=== PATIENT | female | born 1950 | race Caucasian/White ===

== ENCOUNTER 2017-07-20 11:10 | Inpatient (IN) | payer OTHER ==
[2017-07-20] MEDS ORDERED: SODIUM CHLORIDE 1,000 ML IV STA (11:12)
--- NOTE | 2017-07-20 11:17 | PDOC ---
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 Not eating, weak, confused , thinks her potassium may be low, no fever, doctors at [facility], no doctor here at [facility]. Patient has no complaints and can not really cooperate with exam. Hygene is meticulous. Timing/Duration: 1 week Severity: mild Modifying Factors: worse with: cold therapy, eating, immobilization, medication , movement, rest, other Associated Symptoms: denies: denies symptoms, chest pain, cough, diaphoresis, fever/chills, headaches, loss of appetite, malaise, nausea/vomiting, rash, seizure, shortness of breath, syncope, weakness, other Past History - Past Medical History Allergies/Adverse Reactions: Allergies Allergy/AdvReac Type Severity Reaction Status Date / Time No Known Allergies Allergy Verified 07/20/17 11:12 Home Medications: Ambulatory Orders Acetaminophen [Non-Aspirin Pain Relief] 650 mg PO Q6H PRN 07/20/17 Amlodipine Besylate 5 mg PO DAILY 07/20/17 Atorvastatin Ca [Lipitor] 80 mg PO DAILY 07/20/17 Levetiracetam [Keppra Oral Solution -] 500 mg PO BID 07/20/17 Potassium Chloride [Klor-Con] 10 meq PO DAILY 07/20/17 Amino Acids/Protein Hydrolys [Prosource No Carb Liquid Pkt] 30 ml PO BID@0800, 1730 #60 packet 07/24/17 Review of Systems - Review of Systems Able to Perform ROS?: Yes Is the patient limited Luxembourger proficient: No Constitutional: Yes: See HPI. No: Unintentional Wgt. Loss Respiratory: No: Symptoms reported Cardiac (ROS): No: Symptoms Reported ABD/GI: No: Symptoms Reported : No: Symptoms Reported Musculoskeletal: No: Symptoms Reported Integumentary: No: Symptoms Reported Neurological: No: Symptoms reported Psychiatric: No: Anxiety, Depression Endocrine: No: Symptoms Reported Hematologic/Lymphatic: No: Symptoms Reported All Other Systems: Reviewed and Negative (Generalized Weakness, Loss of appetite , Increased Confusion) *Physical Exam - Physical Exam Comments: 07/20/17 12:41 67yo chachectic female, breathing easily, unable to cooperate with exam or even interact. VSS/NAD, appears somewhat dry/dehydrated. General Appearance: No: Apparent Distress HEENT: positive: Normal ENT Inspection Neck: positive: Supple. negative: Tender, Lymphadenopathy (R), Lymphadenopathy (L) Respiratory/Chest: positive: Lungs Clear, Normal Breath Sounds Cardiovascular: positive: Regular Rhythm, Regular Rate Gastrointestinal/Abdominal: positive: Normal Bowel Sounds, Flat, Soft Rectal Exam: positive: deferred Lymphatic: negative: Adenopathy, Tenderness Musculoskeletal: positive: Normal Inspection Extremity: positive: Normal Capillary Refill, Normal Inspection. negative: Erythema, Inflammation Integumentary: positive: Normal Color, Dry, Warm Neurologic: positive: Responsive (to loud voice) ED Treatment Course - LABORATORY CBC & Chemistry Diagram: 07/23/17 07:28 07/23/17 07:28 *DC/Admit/Observation/Transfer Diagnosis at time of Disposition: Hypernatremia, RENATO (acute kidney injury) - Discharge Dispostion Condition at time of disposition: Improved - Prescriptions - Referrals - Patient Instructions - Post Discharge Activity
[2017-07-20 12:58] LABS: ACTIVATED PTT 24.7 SECONDS (24.0-38.9)
[2017-07-20 13:04] LABS: INR 1.17 (0.82-1.09); PROTHROMBIN TIME (PATIENT) 13.1 SEC (10.2-13.0)
--- NOTE | 2017-07-20 13:04 | PDOC ---
*Physical Exam - Vital Signs Last Vital Signs Temp Pulse Resp BP Pulse Ox 98.7 F 86 16 144/119 07/20/17 11:11 07/20/17 11:11 07/20/17 11:11 07/20/17 11:11 - Physical Exam Comments: 07/20/17 13:50 67yo female brought in by family for decreased po intake and lethargy. pt is nonverbal with early onset dementia. 07/20/17 13:54 gen: easily arousable, makes eye contact heart: +s1s2 reg lungs: cta b/l abd: soft, nt/nd +bs ext: no c/c/e ED Treatment Course - LABORATORY CBC & Chemistry Diagram: 07/20/17 12:00 07/20/17 12:00 - Medications Given in the ED: ED Medications Discontinued Medications Generic Name Dose Route Start Last Admin Trade Name Freq PRN Reason Stop Dose Admin Sodium Chloride 1,000 mls @ 1,000 mls/hr 07/20/17 11:12 07/20/17 11:30 Normal Saline - IV 07/20/17 12:11 1,000 mls/hr ASDIR STA Administration Medical Decision Making - Medical Decision Making 07/20/17 13:54 a/p: 67yo female with increased sleepiness -pt signed out from the prior attending pending labs. -pt currently receiving ivf hydraiton -vasquez in place. -will continue to monitor and reassess 07/20/17 14:27 sodium 150, BUN 30 cr 1.4 - concerning for dehydration will start 1/2 ns microblog sent to hospitalist for observation family at the bedside updated on labs. 07/20/17 15:53 case discussed with hospitalist [employer] [facility] who accepts pt under Dr. Decker *DC/Admit/Observation/Transfer Diagnosis at time of Disposition: Hypernatremia, RENATO (acute kidney injury) - Discharge Dispostion Condition at time of disposition: Fair Admit: Yes - Referrals - Patient Instructions - Post Discharge Activity
[2017-07-20 13:11] LABS: PH,URINE 5.5 (4.5-8); URINE APPEARANCE Clear; URINE BILIRUBIN 1+ (NEGATIVE); URINE GLUCOSE (UA) Negative (NEGATIVE); URINE KETONE Negative (NEGATIVE); URINE LEUK ESTERASE Negative (NEGATIVE); URINE NITRITE Negative (NEGATIVE); URINE UROBILINOGEN 0.2 (0.2-1.0)
[2017-07-20 13:26] LABS: BASOPHIL 0.4 % (0-2.0); EOSINOPHIL 0.2 % (0-4.5); MCH 27.7 pg (25.7-33.7); MCHC 32.1 g/dl (32.0-36.0); MEAN CELL VOLUME 86.5 fl (80-96); MEAN PLT VOLUME 10.6 fl (7.5-11.1); PLATELET COUNT 295 K/MM3 (134-434); WHITE BLOOD COUNT 9.1 K/mm3 (4.0-10.8)
[2017-07-20 13:34] LABS: VENOUS PH 7.37 (7.32-7.42)
[2017-07-20 13:35] LABS: VENOUS BLOOD GAS HCO3 27.9 meq/L (19-25)
[2017-07-20 13:36] LABS: URINE BLOOD Trace-intact (NEGATIVE); URINE COLOR YELLOW; URINE PROTEIN 1+ (NEGATIVE)
[2017-07-20 13:59] LABS: ALBUMIN 3.5 g/dl (3.4-5.0); ANION GAP 9 (8-16); CALCIUM 8.9 mg/dL (8.5-10.1); CO2 30 mmol/L (21-32); CREATININE 1.4 mg/dL (0.55-1.02); GLUCOSE,RANDOM 105 mg/dL (74-106); SGOT/AST 24 U/L (15-37); SGPT/ALT 20 U/L (12-78)
[2017-07-20 14:04] LABS: ALK PHOS 77 U/L (45-117); BILIRUBIN,TOTAL 0.6 mg/dL (0.2-1.0); CPK 651 IU/L (26-192); TROPONIN I < 0.02 ng/ml (0.00-0.05)
[2017-07-20] MEDS: SODIUM CHLORIDE 0.45% 1,000 ML IV SCH (14:30)
[2017-07-20] MEDS ORDERED: ACETAMINOPHEN 325 MG TABLET (FP) PO PRN (16:15)
[2017-07-20 17:18] VITALS: BMI 18.3
[2017-07-20 19:21] LABS: URINE WBC 0-3 (0-5)
[2017-07-20 19:22] LABS: URINE MUCUS 1+
[2017-07-20 21:00] LABS: ANION GAP 5 (8-16); CALCIUM 8.6 mg/dl (8.4-10.2); CO2 28 mmol/L (22-28); GLUCOSE,RANDOM 97 mg/dl (74-106)
--- NOTE | 2017-07-20 22:42 | HP ---
CHIEF COMPLAINT: not eating/drinking PCP: Lana Mcdowell HISTORY OF PRESENT ILLNESS: This is a 67 year old female with a past medical history significant for Alzheimer's dementia, early onset who presented to the ED with decreased po intake and increased confusion and weakness noted by family. Pt is nonverbal on exam. Family is not present. History is obtained from chart. ER course was notable for: (1) UA not c/w UTI (2) WBC 9.1 (3) Sodium 150, BUN 30, Cr 1.4 Recent Travel: unk PAST MEDICAL HISTORY: Alzheimer's dementia, early onset hypokalemia pt is on norvasc, presumed HTN pt is on atorvastatin, presumed HLD pt is on keppra, presumed seizure hx, ? r/t dementia PAST SURGICAL HISTORY: unknown Social History: Smoking: unk Alcohol: unk Drugs: unk Family History: unk Allergies No Known Allergies Allergy (Verified 07/20/17 11:12) HOME MEDICATIONS: 3 Medication Instructions Recorded Acetaminophen [Non-Aspirin Pain 650 mg PO Q6H PRN 07/20/17 Relief] Amlodipine Besylate 5 mg PO DAILY 07/20/17 Atorvastatin Ca [Lipitor] 80 mg PO DAILY 07/20/17 Levetiracetam [Keppra Oral 500 mg PO BID 07/20/17 Solution -] Potassium Chloride [Klor-Con] 10 meq PO DAILY 07/20/17 REVIEW OF SYSTEMS CONSTITUTIONAL: Present: generalized weakness, malaise, loss of appetite Absent: fever, chills, diaphoresis, weight change HEENT: Absent: rhinorrhea, nasal congestion, throat pain, throat swelling, difficulty swallowing, mouth swelling, ear pain, eye pain, visual changes CARDIOVASCULAR: Absent: chest pain, syncope, palpitations, irregular heart rate, lightheadedness , peripheral edema RESPIRATORY: Absent: cough, shortness of breath, dyspnea with exertion, orthopnea, wheezing, stridor, hemoptysis GASTROINTESTINAL: Absent: abdominal pain, abdominal distension, nausea, vomiting, diarrhea, constipation, melena, hematochezia GENITOURINARY: Absent: dysuria, frequency, urgency, hesitancy, hematuria, flank pain, genital pain MUSCULOSKELETAL: Absent: myalgia, arthralgia, joint swelling, back pain, neck pain SKIN: Absent: rash, itching, pallor HEMATOLOGIC/IMMUNOLOGIC: Absent: easy bleeding, easy bruising, lymphadenopathy, frequent infections ENDOCRINE: Absent: unexplained weight gain, unexplained weight loss, heat intolerance, cold intolerance NEUROLOGIC: Absent: headache, focal weakness or paresthesias, dizziness, unsteady gait, seizure, mental status changes, bladder or bowel incontinence PSYCHIATRIC: Absent: anxiety, depression, suicidal or homicidal ideation, hallucinations. PHYSICAL EXAMINATION Vital Signs - 24 hr 3 07/20/17 07/20/17 07/20/17 11:11 12:30 13:00 Temperature 98.7 F Pulse Rate 86 Pulse Rate [ 73 70 Apical] Respiratory 16 14 15 Rate Blood Pressure 144/119 Blood Pressure 102/71 100/70 [Left Arm] O2 Sat by Pulse 97 98 Oximetry (%) 3 07/20/17 07/20/17 07/20/17 07/20/17 14:15 14:46 16:51 22:41 Temperature 98.8 F 97.3 F L Pulse Rate 82 74 Pulse Rate [ 70 Apical] Respiratory 14 17 16 Rate Blood Pressure 113/53 100/60 Blood Pressure 100/79 [Left Arm] O2 Sat by Pulse 99 98 96 Oximetry (%) GENERAL: Awake, alert, and nonverbal, in no acute distress. HEAD: Normal with no signs of trauma. EYES: Pupils equal, round and reactive to light, extraocular movements intact, sclera anicteric, conjunctiva clear. No lid lag. EARS, NOSE, THROAT: Ears normal, nares patent, oropharynx clear without exudates. Moist mucous membranes. NECK: Normal range of motion, supple without lymphadenopathy, JVD, or masses. LUNGS: Breath sounds equal, clear to auscultation bilaterally. No wheezes, and no crackles. No accessory muscle use. HEART: Regular rate and rhythm, normal S1 and S2 without murmur, rub or gallop. ABDOMEN: Soft, nontender, not distended, normoactive bowel sounds, no guarding, no rebound, no masses. No hepatomegaly or splenomegaly. MUSCULOSKELETAL: Normal range of motion at all joints. No bony deformities or tenderness. No CVA tenderness. UPPER EXTREMITIES: 2+ pulses, warm, well-perfused. No cyanosis. No clubbing. No peripheral edema. LOWER EXTREMITIES: 2+ pulses, warm, well-perfused. No calf tenderness. No peripheral edema. NEUROLOGICAL: Cranial nerves II-XII intact. Normal speech. Normal gait. PSYCHIATRIC: Cooperative. Good eye contact. Appropriate mood and affect. SKIN: Warm, dry, normal turgor, no rashes noted, normal capillary refill. scab to right lower back, no s/s infection. wound to right hip, appears fresh, denuded skin, approx 3.2cm x 0.8cm. no depth. wound bed pink. surrounding skin WNL Laboratory Results - last 24 hr 3 07/20/17 07/20/17 07/20/17 12:00 12:00 12:00 WBC 9.1 RBC 4.39 Hgb 12.2 Hct 38.0 MCV 86.5 MCH 27.7 MCHC 32.1 RDW 14.0 Plt Count 295 MPV 10.6 Neutrophils % 81.0 Lymphocytes % 15.2 Monocytes % 3.2 L Eosinophils % 0.2 Basophils % 0.4 PT with INR 13.1 H INR 1.17 PTT (Actin FS) 24.7 L VBG pH 7.37 POC VBG pCO2 49.6 POC VBG pO2 25.0 L Mixed VBG HCO3 27.9 H Sodium Potassium Chloride Carbon Dioxide Anion Gap BUN Creatinine Creat Clearance w eGFR Random Glucose Lactic Acid Calcium Total Bilirubin AST ALT Alkaline Phosphatase Creatine Kinase Creatine Kinase Index CK-MB (CK-2) Troponin I Total Protein Albumin Urine Color Urine Appearance Urine pH Ur Specific [place] Urine Protein Urine Glucose (UA) Urine Ketones Urine Blood Urine Nitrite Urine Bilirubin Urine Urobilinogen Ur Leukocyte Esterase Urine RBC Urine WBC Ur Epithelial Cells Amorphous Urates Hyaline Casts Urine Mucus Blood Type Antibody Screen Spec Expiration Date 3 07/20/17 07/20/17 07/20/17 07/20/17 12:00 12:00 12:30 15:46 WBC RBC Hgb Hct MCV MCH MCHC RDW Plt Count MPV Neutrophils % Lymphocytes % Monocytes % Eosinophils % Basophils % PT with INR INR PTT (Actin FS) VBG pH POC VBG pCO2 POC VBG pO2 Mixed VBG HCO3 Sodium 150 H Potassium 3.8 Chloride 111 H Carbon Dioxide 30 Anion Gap 9 BUN 30 H Creatinine 1.4 H Creat Clearance w eGFR 37.51 Random Glucose 105 Lactic Acid 1.4 Calcium 8.9 Total Bilirubin 0.6 AST 24 ALT 20 Alkaline Phosphatase 77 Creatine Kinase 651 H Creatine Kinase Index 1.0 CK-MB (CK-2) 6.618 H Troponin I < 0.02 Total Protein 7.0 Albumin 3.5 Urine Color Yellow Urine Appearance Clear Urine pH 5.5 Ur Specific [place] 1.020 Urine Protein 1+ H Urine Glucose (UA) Negative Urine Ketones Negative Urine Blood Trace-intact H Urine Nitrite Negative Urine Bilirubin 1+ H Urine Urobilinogen 0.2 Ur Leukocyte Esterase Negative Urine RBC 3-5 Urine WBC 0-3 Ur Epithelial Cells 3-5 Amorphous Urates Few Hyaline Casts 3-5 Urine Mucus 1+ Blood Type Cancelled Antibody Screen Cancelled Spec Expiration Date Cancelled 3 07/20/17 07/20/17 07/20/17 19:00 20:00 Unknown WBC RBC Hgb Hct MCV MCH MCHC RDW Plt Count MPV Neutrophils % Lymphocytes % Monocytes % Eosinophils % Basophils % PT with INR INR PTT (Actin FS) VBG pH POC VBG pCO2 POC VBG pO2 Mixed VBG HCO3 Sodium 144 Potassium 3.5 Chloride 111 H Carbon Dioxide 28 Anion Gap 5 L BUN 30 H Creatinine 1.0 Creat Clearance w eGFR Random Glucose 97 Lactic Acid 1.7 2.5 H* Calcium 8.6 Total Bilirubin AST ALT Alkaline Phosphatase Creatine Kinase Creatine Kinase Index CK-MB (CK-2) Troponin I Total Protein Albumin Urine Color Urine Appearance Urine pH Ur Specific [place] Urine Protein Urine Glucose (UA) Urine Ketones Urine Blood Urine Nitrite Urine Bilirubin Urine Urobilinogen Ur Leukocyte Esterase Urine RBC Urine WBC Ur Epithelial Cells Amorphous Urates Hyaline Casts Urine Mucus Blood Type Antibody Screen Spec Expiration Date ECG accelerated junctional rhythm rate 79, QTC 431 nonspeicfic T wave abnormality Radiology Reports CXR: No acute chest pathology ASSESSMENT/PLAN: 67yF with PMH Alzheimer's disease and hypokalemia presented with decreased po intake, weak and confused as per . Hypernatremia - improved with IVF, cont 1/2 NS @ 100cc/hr - likely r/t dehydration Elevated lactic acid - 1.4-->2.5-->1.7 improved with hydration, would not trend further RENATO - BUN/Cr elevated, improved with hydration, cont same HTN - BP running low, hold norvas HLD - cont lipitor Advanced dementia - cont keppra for seizure prevention - cont supportive care - outpatient f/u with PCP DVT PPX - chemoprophylaxis deferred as expected LOS <2MN Dispo: Pt currently requires inpatient monitoring for management of her emergent condition. Visit type - Emergency Visit Emergency Visit: Yes ED Registration Date: 07/20/17 Care time: The patient presented to the Emergency Department on the above date and was hospitalized for further evaluation of their emergent condition. - New Patient This patient is new to me today: Yes Date on this admission: 07/20/17 - Critical Care Critical Care patient: No
[2017-07-20] MEDS: levETIRAcetam 500 MG/5 ML ORAL SOLUTION (UNIT-DOSE CUPS) PO SCH (23:52)
[2017-07-21 08:41] LABS: BASOPHIL 0.5 % (0-2.0); EOSINOPHIL 1.3 % (0-4.5); MCH 27.7 pg (25.7-33.7); MCHC 32.1 g/dl (32.0-36.0); MEAN CELL VOLUME 86.4 fl (80-96); MEAN PLT VOLUME 10.4 fl (7.5-11.1); NEUTROPHILS 70.6 % (42.8-82.8); PLATELET COUNT 212 K/MM3 (134-434); RDW 13.5 % (11.6-15.6); WHITE BLOOD COUNT 6.2 K/mm3 (4.0-10.8)
[2017-07-21 09:01] LABS: ANION GAP 3 (8-16); CALCIUM 8.7 mg/dl (8.4-10.2); CO2 27 mmol/L (22-28); CREATININE 0.8 mg/dl (0.6-1.3); GLUCOSE,RANDOM 89 mg/dl (74-106); MAGNESIUM 2.1 mg/dL (1.8-2.4); PHOSPHOROUS 3.1 mg/dl (2.5-4.6)
[2017-07-21] MEDS ORDERED: PT OWN MED DRAWER 7, Y5N ONE (09:46)
[2017-07-21] MEDS: levETIRAcetam 500 MG/5 ML ORAL SOLUTION (UNIT-DOSE CUPS) PO SCH ×2 (09:49→21:43)
--- NOTE | 2017-07-21 11:35 | PN ---
Physical Exam: SUBJECTIVE: Patient seen and examined with her son and in attendance. Patient is non verbal at this time. OBJECTIVE: Vital Signs Period Temp Pulse Resp BP Sys/Menjivar Pulse Ox Last 24 Hr 97.3 F-98.8 F 63-82 14-19 92-113/53-79 96-100 GENERAL: The patient is lethargic, responsive with tactile stimuli, cachectic HEAD: Normal with no signs of trauma. EYES: PERRL, extraocular movements intact, sclera anicteric, conjunctiva clear. No ptosis. ENT: Ears normal, nares patent, oropharynx clear without exudates, NECK: Trachea midline, full range of motion, supple. LUNGS: Diminished breath sounds bilaterally ABDOMEN: Soft, nontender, nondistended, normoactive bowel sounds EXTREMITIES: , no edema. NEUROLOGICAL: Normal speech, wheelchair bound at home PSYCH: Normal mood, normal affect. SKIN: Warm, dry, normal turgor, no rashes or lesions noted Laboratory Results - last 24 hr 07/20/17 07/20/17 07/20/17 12:00 12:00 12:00 WBC 9.1 RBC 4.39 Hgb 12.2 Hct 38.0 MCV 86.5 MCH 27.7 MCHC 32.1 RDW 14.0 Plt Count 295 MPV 10.6 Neutrophils % 81.0 Lymphocytes % 15.2 Monocytes % 3.2 L Eosinophils % 0.2 Basophils % 0.4 PT with INR 13.1 H INR 1.17 PTT (Actin FS) 24.7 L VBG pH 7.37 POC VBG pCO2 49.6 POC VBG pO2 25.0 L Mixed VBG HCO3 27.9 H Sodium Potassium Chloride Carbon Dioxide Anion Gap BUN Creatinine Creat Clearance w eGFR Random Glucose Lactic Acid Calcium Phosphorus Magnesium Total Bilirubin AST ALT Alkaline Phosphatase Creatine Kinase Creatine Kinase Index CK-MB (CK-2) Troponin I Total Protein Albumin Urine Color Urine Appearance Urine pH Ur Specific [place] Urine Protein Urine Glucose (UA) Urine Ketones Urine Blood Urine Nitrite Urine Bilirubin Urine Urobilinogen Ur Leukocyte Esterase Urine RBC Urine WBC Ur Epithelial Cells Amorphous Urates Hyaline Casts Urine Mucus Blood Type Antibody Screen Spec Expiration Date 07/20/17 07/20/17 07/20/17 12:00 12:00 12:30 WBC RBC Hgb Hct MCV MCH MCHC RDW Plt Count MPV Neutrophils % Lymphocytes % Monocytes % Eosinophils % Basophils % PT with INR INR PTT (Actin FS) VBG pH POC VBG pCO2 POC VBG pO2 Mixed VBG HCO3 Sodium 150 H Potassium 3.8 Chloride 111 H Carbon Dioxide 30 Anion Gap 9 BUN 30 H Creatinine 1.4 H Creat Clearance w eGFR 37.51 Random Glucose 105 Lactic Acid Calcium 8.9 Phosphorus Magnesium Total Bilirubin 0.6 AST 24 ALT 20 Alkaline Phosphatase 77 Creatine Kinase 651 H Creatine Kinase Index 1.0 CK-MB (CK-2) 6.618 H Troponin I < 0.02 Total Protein 7.0 Albumin 3.5 Urine Color Yellow Urine Appearance Clear Urine pH 5.5 Ur Specific [place] 1.020 Urine Protein 1+ H Urine Glucose (UA) Negative Urine Ketones Negative Urine Blood Trace-intact H Urine Nitrite Negative Urine Bilirubin 1+ H Urine Urobilinogen 0.2 Ur Leukocyte Esterase Negative Urine RBC 3-5 Urine WBC 0-3 Ur Epithelial Cells 3-5 Amorphous Urates Few Hyaline Casts 3-5 Urine Mucus 1+ Blood Type Cancelled Antibody Screen Cancelled Spec Expiration Date Cancelled 07/20/17 07/20/17 07/20/17 14:00 14:18 15:46 WBC RBC Hgb Hct MCV MCH MCHC RDW Plt Count MPV Neutrophils % Lymphocytes % Monocytes % Eosinophils % Basophils % PT with INR INR PTT (Actin FS) VBG pH POC VBG pCO2 POC VBG pO2 Mixed VBG HCO3 Sodium Potassium Chloride Carbon Dioxide Anion Gap BUN Creatinine Creat Clearance w eGFR Random Glucose Lactic Acid 1.4 Calcium Phosphorus Magnesium Total Bilirubin AST ALT Alkaline Phosphatase Creatine Kinase Creatine Kinase Index CK-MB (CK-2) Troponin I Total Protein Albumin Urine Color Urine Appearance Urine pH Ur Specific [place] Urine Protein Urine Glucose (UA) Urine Ketones Urine Blood Urine Nitrite Urine Bilirubin Urine Urobilinogen Ur Leukocyte Esterase Urine RBC Urine WBC Ur Epithelial Cells Amorphous Urates Hyaline Casts Urine Mucus Blood Type O POSITIVE O POSITIVE Antibody Screen Negative Spec Expiration Date 07/20/17 07/20/17 07/20/17 19:00 20:00 Unknown WBC RBC Hgb Hct MCV MCH MCHC RDW Plt Count MPV Neutrophils % Lymphocytes % Monocytes % Eosinophils % Basophils % PT with INR INR PTT (Actin FS) VBG pH POC VBG pCO2 POC VBG pO2 Mixed VBG HCO3 Sodium 144 Potassium 3.5 Chloride 111 H Carbon Dioxide 28 Anion Gap 5 L BUN 30 H Creatinine 1.0 Creat Clearance w eGFR Random Glucose 97 Lactic Acid 1.7 2.5 H* Calcium 8.6 Phosphorus Magnesium Total Bilirubin AST ALT Alkaline Phosphatase Creatine Kinase Creatine Kinase Index CK-MB (CK-2) Troponin I Total Protein Albumin Urine Color Urine Appearance Urine pH Ur Specific [place] Urine Protein Urine Glucose (UA) Urine Ketones Urine Blood Urine Nitrite Urine Bilirubin Urine Urobilinogen Ur Leukocyte Esterase Urine RBC Urine WBC Ur Epithelial Cells Amorphous Urates Hyaline Casts Urine Mucus Blood Type Antibody Screen Spec Expiration Date 07/21/17 07/21/17 07/21/17 07:40 07:40 09:50 WBC 6.2 D RBC 3.59 L Hgb 9.9 L D Hct 31.0 L D MCV 86.4 MCH 27.7 MCHC 32.1 RDW 13.5 Plt Count 212 D MPV 10.4 Neutrophils % 70.6 Lymphocytes % 21.0 D Monocytes % 6.6 D Eosinophils % 1.3 D Basophils % 0.5 PT with INR INR PTT (Actin FS) VBG pH POC VBG pCO2 POC VBG pO2 Mixed VBG HCO3 Sodium 144 Potassium 3.5 Chloride 114 H Carbon Dioxide 27 Anion Gap 3 L BUN 26 H Creatinine 0.8 Creat Clearance w eGFR Random Glucose 89 Lactic Acid 1.0 Calcium 8.7 Phosphorus 3.1 Magnesium 2.1 Total Bilirubin AST ALT Alkaline Phosphatase Creatine Kinase Creatine Kinase Index CK-MB (CK-2) Troponin I Total Protein Albumin Urine Color Urine Appearance Urine pH Ur Specific [place] Urine Protein Urine Glucose (UA) Urine Ketones Urine Blood Urine Nitrite Urine Bilirubin Urine Urobilinogen Ur Leukocyte Esterase Urine RBC Urine WBC Ur Epithelial Cells Amorphous Urates Hyaline Casts Urine Mucus Blood Type Antibody Screen Spec Expiration Date Active Medications Generic Name Dose Route Start Last Admin Trade Name Freq PRN Reason Stop Dose Admin Acetaminophen 650 mg 07/20/17 16:15 Tylenol - PO Q6H PRN PAIN Atorvastatin Calcium 80 mg 07/21/17 22:00 Lipitor - PO HS MIGUEL Sodium Chloride 1,000 mls @ 100 mls/hr 07/20/17 14:30 07/20/17 14:30 1/2 Normal Saline IV 100 mls/hr ASDIR MIGUEL Administration Levetiracetam 500 mg 07/20/17 22:00 07/21/17 09:49 Keppra Oral Solution - PO 500 mg BID MIGUEL Administration ASSESSMENT/PLAN: patient is a 67 year old female with a significant past medical history of early onset Alzheimer's dementia and presumed seizures. Patient was brought into the ER by her who reports that patient having increased confusion, worsening PO intake and weakness. On exam patient is lethargic, arousable with tactile stimuli, sleepy. states that he noticed that his was eating less, sleeping more and much weaker. He notes that she is also coughing with meals. Patient family concerned over patient's swallowing and nutrition, asking for speech, swallow and nutrition evaluation. Imaging: Chest xray: Clear lungs Neuro: Metabolic encephalopathy in the setting of early onset alzheimers dementia and electrolyte imbalance Hypernatremia, resolved Serum sodium 150>144, likely secondary to poor PO intake/dehydration on 1/2 NS s@ 100cc/hr On Keppra (home dose) for seizure prevention Monitor mental status Lactic acidosis, resolved Improved with hydration Cachexia, poor PO intake RD consult Monitor intake Swallow evaluation Renal: Acute kidney injury in the setting of dehydration Improving with IVF, continue Monitor output Cardiology: Hypertension hx, now presents with hypotension Likely secondary to hypovolevmia Hold cardiac meds Monitor BP HLD, chronic On Lpitor F.E.N. Fluids: 1/2 NS @ 100cc/hr Electrolytes: monitor and correct Nutrition: regular diet, but has poor PO intake: RD consulted, speech/swall evaluation Prophylaxis: DVT: SCDs GI: Protonix Dispo: Pt currently requires inpatient monitoring for management of her emergent condition. Visit type - Emergency Visit Emergency Visit: Yes ED Registration Date: 07/20/17 Care time: The patient presented to the Emergency Department on the above date and was hospitalized for further evaluation of their emergent condition. - New Patient This patient is new to me today: Yes Date on this admission: 07/21/17 - Critical Care Critical Care patient: No - Discharge Referral [facility] Med [facility] No
[2017-07-21] MEDS: AMINO ACIDS/PROTEIN HYDROLYS 30 ML LIQUID.PKT PO SCH (13:00)
[2017-07-21] MEDS: SODIUM CHLORIDE 0.45% 1,000 ML IV SCH (15:00)
[2017-07-21] MEDS: ATORVASTATIN CA 80 MG TABLET (FP) PO SCH (21:43)
--- NOTE | 2017-07-22 07:38 | PN ---
Physical Exam: SUBJECTIVE: Patient seen and examined. She is more awake and more responsive to tactile stimuli. OBJECTIVE: More awake and alert, tolerating meals BP meds restarted Vital Signs Period Temp Pulse Resp BP Sys/Menjivar Pulse Ox Last 24 Hr 97.3 F-98.5 F 62-86 16-20 110-133/65-81 98-100 GENERAL: The patient is more awake today, opening her eyes, Cachectic, appears malnutritioned, started on Prosource yesterday HEAD: Normal with no signs of trauma. EYES: PERRL, extraocular movements intact, sclera anicteric, conjunctiva clear. No ptosis. ENT: Ears normal, nares patent, oropharynx clear without exudates, NECK: Trachea midline, full range of motion, supple. LUNGS: Diminished breath sounds bilaterally ABDOMEN: Soft, nontender, nondistended, normoactive bowel sounds EXTREMITIES: no edema, thin contracted lower extremities NEUROLOGICAL: Largely non verbal, wheelchair bound at home PSYCH: hx of early onset dementia SKIN: Right Hip with 2cmL x 0.5cmW area which appears to be skin shearing, protected with duoderm: present on admission Recommend: clean site with NS, and cover with Allevyn, pressure relief, on Prosouce. Laboratory Results - last 24 hr 07/21/17 07/21/17 07/21/17 07:40 07:40 09:50 WBC 6.2 D RBC 3.59 L Hgb 9.9 L D Hct 31.0 L D MCV 86.4 MCH 27.7 MCHC 32.1 RDW 13.5 Plt Count 212 D MPV 10.4 Neutrophils % 70.6 Lymphocytes % 21.0 D Monocytes % 6.6 D Eosinophils % 1.3 D Basophils % 0.5 Sodium 144 Potassium 3.5 Chloride 114 H Carbon Dioxide 27 Anion Gap 3 L BUN 26 H Creatinine 0.8 Random Glucose 89 Lactic Acid 1.0 Calcium 8.7 Phosphorus 3.1 Magnesium 2.1 Active Medications Generic Name Dose Route Start Last Admin Trade Name Freq PRN Reason Stop Dose Admin Acetaminophen 650 mg 07/20/17 16:15 Tylenol - PO Q6H PRN PAIN Amino Acids 30 ml 07/21/17 12:15 07/21/17 13:00 Prosource No Carb Liquid Pkt PO 30 ml BID@0800,1730 MIGUEL Administration Atorvastatin Calcium 80 mg 07/21/17 22:00 07/21/17 21:43 Lipitor - PO 80 mg HS MIGUEL Administration Sodium Chloride 1,000 mls @ 100 mls/hr 07/20/17 14:30 07/21/17 15:00 1/2 Normal Saline IV 100 mls/hr ASDIR MIGUEL Administration Levetiracetam 500 mg 07/20/17 22:00 07/21/17 21:43 Keppra Oral Solution - PO 500 mg BID MIGUEL Administration ASSESSMENT/PLAN: patient is a 67 year old female with a significant past medical history of early onset Alzheimer's dementia and presumed seizures. Patient was brought into the ER by her who reports that patient having increased confusion, worsening PO intake and weakness. On exam patient is lethargic, but now more arousable with tactile stimuli. She lives at home with her family who care for her but most of the care and feeds is performed by the . Family wants patient to return home but they are asking for a RD and speech and swallow eval. before discharge. She was started on Prosource for prevention of pressure ulcers since she is mostly bedbound and has poor PO intake. Imaging: Chest xray: Clear lungs Neuro: Metabolic encephalopathy in the setting of early onset alzheimers dementia and electrolyte imbalance, improving Hypernatremia (Serum sodium 150>144), resolved Continue hydration for now, encourage PO intake Seizure, chronic On Keppra (home dose) for seizure prevention Monitor mental status Lactic acidosis, resolved Improved with hydration Cachexia, poor PO intake/Severe Protein Malnutrition, chronic Poor PO intake at home as per family Has episodes of swallowing difficulty Skin shearing on right hip with small open wound as noted above Prosource BID RD consult Monitor intake Swallow evaluation prior to d/c Renal: Acute kidney injury in the setting of dehydration, resolved Cardiology: Hypotension, now resolved Hypertension, chronic Will re-start home meds: amlodopine 5mg daily Monitor BP HLD, chronic On Lpitor F.E.N. Fluids: 1/2 NS @ 100cc/hr Electrolytes: monitor and correct Nutrition: regular diet, but has poor PO intake: RD consulted, speech/swall evaluation Prophylaxis: DVT: SCDs GI: Protonix Dispo: Pt currently requires inpatient monitoring for management of her emergent condition. Discharge home after swallow evaluation and RD consulted for severe protein malnutrition, cachexia. Visit type - Emergency Visit Emergency Visit: Yes ED Registration Date: 07/20/17 Care time: The patient presented to the Emergency Department on the above date and was hospitalized for further evaluation of their emergent condition. - New Patient This patient is new to me today: No - Critical Care Critical Care patient: No - Discharge Referral Referred to [facility] No
[2017-07-22] MEDS: AMINO ACIDS/PROTEIN HYDROLYS 30 ML LIQUID.PKT PO SCH (08:00)
[2017-07-22 09:22] LABS: BASOPHIL 0.3 % (0-2.0); EOSINOPHIL 0.5 % (0-4.5); MCH 28.4 pg (25.7-33.7); MCHC 32.9 g/dl (32.0-36.0); MEAN CELL VOLUME 86.4 fl (80-96); MEAN PLT VOLUME 11.1 fl (7.5-11.1); NEUTROPHILS 76.9 % (42.8-82.8); PLATELET COUNT 236 K/MM3 (134-434); RDW 13.4 % (11.6-15.6); WHITE BLOOD COUNT 7.1 K/mm3 (4.0-10.8)
[2017-07-22 09:34] LABS: ALBUMIN 3.7 g/dl (3.5-5.0); ALK PHOS 63 U/L (32-92); ANION GAP 9 (8-16); BILIRUBIN,TOTAL 0.6 mg/dl (0.2-1.0); CALCIUM 8.6 mg/dl (8.4-10.2); CO2 25 mmol/L (22-28); CREATININE 0.6 mg/dl (0.6-1.3); GLUCOSE,RANDOM 91 mg/dl (74-106); SGOT/AST 28 U/L (10-42); SGPT/ALT 18 U/L (10-40); TOT PROT 6.7 g/dl (6.4-8.3)
[2017-07-22] MEDS: amLODIPine BESYLATE 5 MG TABLET (FP) PO SCH (10:00)
[2017-07-22] MEDS: levETIRAcetam 500 MG/5 ML ORAL SOLUTION (UNIT-DOSE CUPS) PO SCH ×2 (10:00→21:14)
[2017-07-22] MEDS ORDERED: POTASSIUM CHLORIDE ORAL LIQUID 20 MEQ/15 ML PO ONE (10:15)
--- NOTE | 2017-07-22 17:48 | EKG ---
Test Reason : Blood Pressure : / mmHG Vent. Rate : 079 BPM Atrial Rate : 083 BPM P-R Int : 000 ms QRS Dur : 084 ms QT Int : 376 ms P-R-T Axes : 000 083 063 degrees QTc Int : 431 ms ACCELERATED JUNCTIONAL RHYTHM NONSPECIFIC T WAVE ABNORMALITY RSR' OR QR PATTERN IN V1 SUGGESTS RIGHT VENTRICULAR CONDUCTION DELAY ABNORMAL ECG NO PREVIOUS ECGS AVAILABLE Confirmed by SYED DIAZ MD ([id number] on 07/22/2017 5:47:49 PM Referred By: Confirmed By:SYED DIAZ MD
[2017-07-22] MEDS: ATORVASTATIN CA 80 MG TABLET (FP) PO SCH (21:14)
[2017-07-23 08:30] LABS: BASOPHIL 0.3 % (0-2.0); EOSINOPHIL 0.8 % (0-4.5); MCHC 32.4 g/dl (32.0-36.0); MEAN CELL VOLUME 86.4 fl (80-96); MEAN PLT VOLUME 10.4 fl (7.5-11.1); NEUTROPHILS 69.4 % (42.8-82.8); PLATELET COUNT 218 K/MM3 (134-434); RDW 13.1 % (11.6-15.6)
[2017-07-23 09:33] LABS: ALBUMIN 3.1 g/dl (3.5-5.0); ALK PHOS 54 U/L (32-92); ANION GAP 7 (8-16); BILIRUBIN,TOTAL 0.5 mg/dl (0.2-1.0); CALCIUM 8.3 mg/dl (8.4-10.2); CO2 26 mmol/L (22-28); CREATININE 0.5 mg/dl (0.6-1.3); GLUCOSE,RANDOM 88 mg/dl (74-106); SGOT/AST 26 U/L (10-42); SGPT/ALT 17 U/L (10-40); TOT PROT 5.7 g/dl (6.4-8.3)
--- NOTE | 2017-07-23 09:44 | PN ---
Physical Exam: SUBJECTIVE: Patient seen and examined, nonverbal, makes eye contact, at bedside, reports patient is at baseline. OBJECTIVE:patient is a 67 year old female with a significant past medical history of early onset Alzheimer's dementia and presumed seizures. patient was admitted from the emergency department for metabolic encephalopathy. Vital Signs Period Temp Pulse Resp BP Sys/Menjivar Pulse Ox Last 24 Hr 98.0 F-98.5 F 63-77 16-20 116-132/65-70 98-100 GENERAL: makes eye contact, open eyes to name, Cachectic, appears malnutritioned , started on Prosource yesterday HEAD: Normal with no signs of trauma. EYES: PERRL, extraocular movements intact, sclera anicteric, conjunctiva clear. No ptosis. ENT: Ears normal, nares patent, oropharynx clear without exudates, NECK: Trachea midline, full range of motion, supple. LUNGS: Diminished breath sounds bilaterally ABDOMEN: Soft, nontender, nondistended, normoactive bowel sounds EXTREMITIES: no edema, thin contracted lower extremities NEUROLOGICAL: Largely non verbal, wheelchair bound at home PSYCH: hx of early onset dementia SKIN: Right Hip with 2cmL x 0.5cm Allevyn, pressure relief, on Prosouce. Laboratory Results - last 24 hr 07/22/17 07/23/17 07/23/17 08:00 07:28 07:28 WBC 5.0 RBC 3.44 L Hgb 9.6 L D Hct 29.8 L MCV 86.4 MCH 28.0 MCHC 32.4 RDW 13.1 Plt Count 218 MPV 10.4 Neutrophils % 69.4 Lymphocytes % 24.0 D Monocytes % 5.5 Eosinophils % 0.8 Basophils % 0.3 Sodium 144 144 Potassium 3.2 L 3.2 L Chloride 110 H 111 H Carbon Dioxide 25 26 Anion Gap 9 7 L BUN 14 D 10 D Creatinine 0.6 D 0.5 L Creat Clearance w eGFR > 60 > 60 Random Glucose 91 88 Calcium 8.6 8.3 L Total Bilirubin 0.6 0.5 AST 28 26 ALT 18 17 Alkaline Phosphatase 63 54 Total Protein 6.7 5.7 L Albumin 3.7 3.1 L Active Medications Generic Name Dose Route Start Last Admin Trade Name Freq PRN Reason Stop Dose Admin Acetaminophen 650 mg 07/20/17 16:15 Tylenol - PO Q6H PRN PAIN Amino Acids 30 ml 07/21/17 12:15 07/22/17 08:00 Prosource No Carb Liquid Pkt PO 30 ml BID@0800,1730 MIGUEL Administration Amlodipine Besylate 5 mg 07/22/17 10:00 07/22/17 10:00 Norvasc - PO 5 mg DAILY MIGUEL Administration Atorvastatin Calcium 80 mg 07/21/17 22:00 07/22/17 21:14 Lipitor - PO 80 mg HS MIGUEL Administration Sodium Chloride 1,000 mls @ 100 mls/hr 07/20/17 14:30 07/21/17 15:00 1/2 Normal Saline IV 100 mls/hr ASDIR MIGUEL Administration Levetiracetam 500 mg 07/20/17 22:00 07/22/17 21:14 Keppra Oral Solution - PO 500 mg BID MIGUEL Administration Potassium Chloride 40 meq 07/23/17 09:43 Potassium Chloride Oral Liquid PO 07/23/17 09:44 ONCE ONE Microbiology 07/20/17 12:00 Blood - Peripheral Venous Blood Culture - Preliminary NO GROWTH OBTAINED AFTER 72 HOURS, INCUBATION TO CONTINUE FOR 2 DAYS. 07/20/17 Unknown Blood - Peripheral Venous Blood Culture - Preliminary NO GROWTH OBTAINED AFTER 72 HOURS, INCUBATION TO CONTINUE FOR 2 DAYS. 07/20/17 12:30 Urine - Urine - Catheterized Urine Culture - Final NO GROWTH OBTAINED Imaging: Chest xray: Clear lungs ASSESSMENT/PLAN: 1) neuro metabolic encephalopathy in the setting of early onset alzheimers dementia - back to baseline seizure, chronic - continue home dose keppra 2) f/e/n Cachexia, poor PO intake/Severe Protein Malnutrition, chronic - swallow study completed advised, thin liquid, prostat and ensure - continue prosource bid hypernatremia - resolved after gentle iv hydration hypokalemia - replete potassium, 40meq kci x 1, and add 20meq kci to ivf 3) renal lai - resolved with ivf, secondary to dehydration 4) cardiology hypertension - restart amlodpine, b/p at goal hyperlipidemia continue lipitor Prophylaxis: DVT: SCDs GI: Protonix Dispo: Pt currently requires inpatient monitoring for management of her emergent condition, lengthy conversation with , requesting to bring home patient, discussed with social professionals,[employer] established for visiting nurse services. Visit type - Emergency Visit Emergency Visit: Yes ED Registration Date: 07/22/17 Care time: The patient presented to the Emergency Department on the above date and was hospitalized for further evaluation of their emergent condition. - New Patient This patient is new to me today: Yes Date on this admission: 07/23/17 - Critical Care Critical Care patient: No - Discharge Referral Referred to [facility] No
[2017-07-23] MEDS: amLODIPine BESYLATE 5 MG TABLET (FP) PO SCH (10:14)
[2017-07-23] MEDS: levETIRAcetam 500 MG/5 ML ORAL SOLUTION (UNIT-DOSE CUPS) PO SCH ×2 (10:14→21:23)
--- NOTE | 2017-07-23 10:14 | CONSULT ---
Admitting History and Physical - Primary Care Physician PCP: Lisa Bird - Admission History of Present Illness: 67 year old female with PMH of early onset Alzheimer's dementia and presumed seizures,admitted for increased confusion, worsening PO intake and weakness. 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 - Smoking History Smoking history: Former smoker Have you smoked in the past 12 months: No If you are a former smoker, when did you quit?: 20 YEARS AGO - Alcohol/Substance Use Hx Alcohol Use: No History - Admission Reason For Visit: HYPERNATREMIA & ACUTE KIDNEY INJURY - Diagnostics X-ray: Report Reviewed (NAD) - General Mental Status: Awake and Alert, Confused Attention: Moderate Impairment Ability to Follow Directions: Poor Head/Neck Control: Needs Assist Speech Evaluation - Communication Primary Language: TAMAZIGHT Communication: Yes: Non-Communicable Oral Expression Ability: Yes: Non-Verbal, Non-Vocal - Language/Auditory Comprehension Observation: Able to respond to yes/no queries: No, Comprehends Conversational Speech: No - Swallow Evaluation/Bedside Assessment Current Nutritional Intake: Regular, Thin Liquids Oral Secretions: Yes: WFL Dentition: Yes: Missing Teeth Facial Symmetry at Rest: Symmetrical Laryngeal Movement: Labored,delay initiation Rate of Intake: Slow/Holding (Holds puree in mouth, with very delayed swallow, sometimes not generated. Swallow is triggered best with liquids.Pt reported to "take 20% and then stop".) Bolus Size: Small Labial Seal: WFL Oral Prep Time: Increased A-P Transit: Impaired Pocketing: Present Left Timing of Swallow: Delayed Coughing/Throat Clear: No Change in Voice: No Recommendations - Speech Evaluation, Impression/Plan Impression: Oral Apraxia/oral holding/delayed swallow secondary to Advanced Dementia. Weight loss. Swallow is brisk once triggered. Holds puree in mouth, with very delayed swallow, sometimes not generated. Swallow is triggered best with liquids.Pt reported to "take 20% and then stop". - Disposition Discharge to: Home with Assist - Dysphagia Impressions/Plan Swallowing Skills: Impaired Dysphagia Impressions: Moderate Impairment, Risk of Aspiration *Silent aspiration: cannot be R/O at bedside Dysphagia Treatment Plan: Chin Tuck/Down, Clear Pocket Food, Elevate HOB during feed (Maintain HOB for an hour after meals.), Other (Alternate solids with liquids. Encourage Ensure plus with each meal.) - Recommendations Diet Consistency: Dysphagia Pureed Medication Administration: Crushed with applesauce (Follow with liquid) Liquids: Thin Liquids Supplement: Ensure (TID. RD consult regarding amount of supplement indicated for this pt.), Other (Prostat)
[2017-07-23] MEDS ORDERED: POTASSIUM CHLORIDE ORAL LIQUID 20 MEQ/15 ML PO ONE (10:15)
[2017-07-23] MEDS: AMINO ACIDS/PROTEIN HYDROLYS 30 ML LIQUID.PKT PO SCH ×2 (10:26→17:52)
[2017-07-23] MEDS ORDERED: D5-1/2NS+20 MEQ KCL - 20 MEQ/1,000 ML INFUS.BAG IV SCH (11:00)
[2017-07-23] MEDS ORDERED: PT OWN MED DRAWER 7, Y5N ONE (21:21)
[2017-07-23] MEDS: ATORVASTATIN CA 80 MG TABLET (FP) PO SCH (21:23)
[2017-07-24] MEDS: AMINO ACIDS/PROTEIN HYDROLYS 30 ML LIQUID.PKT PO SCH (09:54)
[2017-07-24] MEDS: amLODIPine BESYLATE 5 MG TABLET (FP) PO SCH (09:54)
[2017-07-24] MEDS: levETIRAcetam 500 MG/5 ML ORAL SOLUTION (UNIT-DOSE CUPS) PO SCH (09:54)
[2017-07-24 10:00] VITALS: BP 94/70; PULSE 80; TEMP 98.5
--- NOTE | 2017-07-24 11:00 | DS ---
Physical Exam: SUBJECTIVE: Patient seen and examined, patient is alert and awake makes eye contact, patient is nonverbal, patient appears comfortable. OBJECTIVE:This is a 67 year old female with a past medical history significant for Alzheimer's dementia, early onset who presented to the ED with decreased po intake and increased confusion and weakness noted by family. Pt is nonverbal on exam. Family is not present. History is obtained from chart. ER course was notable for: (1) UA not c/w UTI (2) WBC 9.1 (3) Sodium 150, BUN 30, Cr 1.4 Vital Signs Period Temp Pulse Resp BP Sys/Menjivar Pulse Ox Last 24 Hr 97.5 F-98.5 F 73-98 18-20 94-132/70-79 99-100 PHYSICAL EXAM .GENERAL: makes eye contact, open eyes to name, Cachectic, appears malnutritioned, started on Prosource yesterday HEAD: Normal with no signs of trauma. EYES: PERRL, extraocular movements intact, sclera anicteric, conjunctiva clear. No ptosis. ENT: Ears normal, nares patent, oropharynx clear without exudates, NECK: Trachea midline, full range of motion, supple. LUNGS: Diminished breath sounds bilaterally ABDOMEN: Soft, nontender, nondistended, normoactive bowel sounds EXTREMITIES: no edema, thin contracted lower extremities NEUROLOGICAL: Largely non verbal, wheelchair bound at home PSYCH: hx of early onset dementia SKIN: Right Hip with 2cmL x 0.5cm Allevyn, pressure relief, on Prosouc LABS Laboratory Results - last 24 hr 07/20/17 07/23/17 12:00 07:30 Magnesium 1.9 Levetiracetam 10.8 CBC WBC 5.0 K/mm3 (4.0-10.8) 07/23/17 07:28 RBC 3.44 M/mm3 (3.60-5.2) L 07/23/17 07:28 Hgb 9.6 GM/dl (10.7-15.3) L D 07/23/17 07:28 Hct 29.8 % (32.4-45.2) L 07/23/17 07:28 MCV 86.4 fl (80-96) 07/23/17 07:28 MCH 28.0 pg (25.7-33.7) 07/23/17 07:28 MCHC 32.4 g/dl (32.0-36.0) 07/23/17 07:28 RDW 13.1 % (11.6-15.6) 07/23/17 07:28 Plt Count 218 K/MM3 (134-434) 07/23/17 07:28 MPV 10.4 fl (7.5-11.1) 07/23/17 07:28 Neutrophils % 69.4 % (42.8-82.8) 07/23/17 07:28 Lymphocytes % 24.0 % (8-40) D 07/23/17 07:28 Monocytes % 5.5 % (3.8-10.2) 07/23/17 07:28 Eosinophils % 0.8 % (0-4.5) 07/23/17 07:28 Basophils % 0.3 % (0-2.0) 07/23/17 07:28 CMP Sodium 144 mmol/L (136-145) 07/23/17 07:28 Potassium 3.2 mmol/L (3.5-5.1) L 07/23/17 07:28 Chloride 111 mmol/L (98-107) H 07/23/17 07:28 Carbon Dioxide 26 mmol/L (22-28) 07/23/17 07:28 Anion Gap 7 (8-16) L 07/23/17 07:28 BUN 10 mg/dl (7-18) D 07/23/17 07:28 Creatinine 0.5 mg/dl (0.6-1.3) L 07/23/17 07:28 Creat Clearance w eGFR > 60 (>60) 07/23/17 07:28 Random Glucose 88 mg/dl (74-106) 07/23/17 07:28 Lactic Acid 1.0 mmol/L (0.4-2.0) 07/21/17 09:50 Calcium 8.3 mg/dl (8.4-10.2) L 07/23/17 07:28 Phosphorus 3.1 mg/dl (2.5-4.6) 07/21/17 07:40 Magnesium 1.9 mg/dL (1.8-2.4) 07/23/17 07:30 Total Bilirubin 0.5 mg/dl (0.2-1.0) 07/23/17 07:28 AST 26 U/L (10-42) 07/23/17 07:28 ALT 17 U/L (10-40) 07/23/17 07:28 Alkaline Phosphatase 54 U/L (32-92) 07/23/17 07:28 Creatine Kinase 651 IU/L (26-192) H 07/20/17 12:00 Creatine Kinase Index 1.0 % (0.0-5.0) 07/20/17 12:00 CK-MB (CK-2) 6.618 ng/mL (0.5-3.6) H 07/20/17 12:00 Troponin I < 0.02 ng/ml (0.00-0.05) 07/20/17 12:00 Total Protein 5.7 g/dl (6.4-8.3) L 07/23/17 07:28 Albumin 3.1 g/dl (3.5-5.0) L 07/23/17 07:28 Microbiology 07/20/17 12:00 Blood - Peripheral Venous Blood Culture - Preliminary NO GROWTH OBTAINED AFTER 72 HOURS, INCUBATION TO CONTINUE FOR 2 DAYS. 07/20/17 Unknown Blood - Peripheral Venous Blood Culture - Preliminary NO GROWTH OBTAINED AFTER 72 HOURS, INCUBATION TO CONTINUE FOR 2 DAYS. 07/20/17 12:30 Urine - Urine - Catheterized Urine Culture - Final NO GROWTH OBTAINED Imaging: Chest xray: Clear lungs HOSPITAL COURSE: Patient was admitted from the emergency department for metabolic encephalopathy in the setting of early onset alzheimers dementia. Patient is back to baseline. She has a past medical history of seizure disorder, keppra level is wnl and home. Patient has a past medical history of Cachexia, poor PO intake/ Severe Protein Malnutrition, chronic, swallow study completed advised, thin liquid, prostat and ensure, patient was started on prosource bid. hypernatremia was noted which resolved after after gentle iv hydration. patient has was noted to have a hypokalemia, which resolved after potassium repletion. she was noted to have renato secondary to hypovolemia which resolved after gentle iv hydration Date of Admission:07/22/17 Date of Discharge: 07/24/17 Minutes to complete discharge: 45 Discharge Summary Reason For Visit: HYPERNATREMIA & ACUTE KIDNEY INJURY Current Active Problems RENATO (acute kidney injury) (Acute) Hypernatremia (Acute) Condition: Improved - Instructions Diet, Activity, Other Instructions: you were admitted to the hospital for dehydration and was treated with gentle IV hydration. a speech and swallow study was completed and recommends all medications to be crushed given in applesauce, thin liquids and ensure continue all medications as prescribed if any new or persistent symptoms develop please return to the emergency department Disposition: HOME - Home Medications Comprehensive Discharge Medication List: Ambulatory Orders Acetaminophen [Non-Aspirin Pain Relief] 650 mg PO Q6H PRN 07/20/17 Amlodipine Besylate 5 mg PO DAILY 07/20/17 Atorvastatin Ca [Lipitor] 80 mg PO DAILY 07/20/17 Levetiracetam [Keppra Oral Solution -] 500 mg PO BID 07/20/17 Potassium Chloride [Klor-Con] 10 meq PO DAILY 07/20/17 This patient is new to me today: No Emergency Visit: Yes ED Registration Date: 07/22/17 Care time: The patient presented to the Emergency Department on the above date and was hospitalized for further evaluation of their emergent condition. Critical Care patient: No - Discharge Referral Referred to [facility] No
== END 2017-07-24 13:00 | disposition home or self-care (01) | DRG 682 ==
LOC: FER 11:10 → FM/S 16:13 → OBSVTOIN 07-22 13:54
PROVIDERS: ADMIT Internal Medicine; ATTEND Nurse Practitioner Family
DX: N17.9 Acute kidney failure, unspecified (principal); G93.41 Metabolic encephalopathy; E87.0 Hyperosmolality and hypernatremia; R64 Cachexia; Z68.1 Body mass index [BMI] 19.9 or less, adult; G40.89 Other seizures; E87.2 Acidosis; G30.8 Other Alzheimer's disease; F02.80 Dementia in other diseases classified elsewhere, unspecified severity, without behavioral disturbance, psychotic disturbance, mood disturbance, and anxiety; E78.5 Hyperlipidemia, unspecified; E87.6 Hypokalemia; E86.1 Hypovolemia; E86.0 Dehydration
CPT/HCPCS: 36415; 71010-TC; 80048; 80053; 81003; 81015; 82550; 82553; 82803; 83605; 83735; 84100; 84484; 85025; 85610; 85730; 86850; 86900; 86901; 87040; 87086; 93005; 97161-GP; 99285-25; G0378

== ENCOUNTER 2017-08-06 15:41 | Inpatient (IN) | payer OTHER ==
--- NOTE | 2017-08-06 15:53 | PDOC ---
Rapid Medical Evaluation Time Seen by Provider: 08/06/17 15:49 Medical Evaluation: Allergies Allergy/AdvReac Type Severity Reaction Status Date / Time No Known Allergies Allergy Verified 07/20/17 11:12 08/06/17 15:50 I have performed a brief in person evaluation of this patient. The patient presents with chief complaint of : altered mental status , history of alzheimers taken care of by her . Pt has not been eating . history of severe alzheimers since 2008. Pertinent PE findings: pt is slumped over in the wheelchair, states " she is out of it for one week", seen in [place] 2 weeks ago for dehydration. pt is non ambulatory. I have ordered the following: The patient will proceed to the ER for further evaluation.
--- NOTE | 2017-08-06 16:48 | PDOC ---
History of Present Illness <Jonnie Morrell - Last Filed: 08/06/17 18:59> - General History Source: Patient Exam Limitations: No Limitations - History of Present Illness Initial Comments: 08/06/17 17:27 The patient is a 67 year old female, with a significant past medical history of Alzheimers/dementia, renal insufficiency, and hypertension, who presents to the emergency department with increased confusion, loss of appetite, and generalized weakness for approximately 2 weeks. As per (patients primary loftsman), the patient has decreased appetite for several days, has become extremely weak and more confused than at her baseline. reports the patients visiting nurse recommended the patient follow-up with her PCP for possible G tube placement due to significant weight loss. denies patient has had no recent fever, nausea, vomiting, diarrhea, or constipation. Patient has no complaints at this time and cannot cooperate with exam due to history of dementia. Family has decided she needs a PEG tube. Though she has no primary doctor affiliated with [facility], family likes the patient care here, and desires PEG tube placement. reports the reason he came here is because the PEG tube procedure could not be done at [facility]. Allergies: NKDA Past Surgical History: None reported. 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 Non smoker. No ETOH or recreational drug use. PCP: At [facility], but none at [facility] <Holly Calixto - Last Filed: 08/06/17 19:02> - General Chief Complaint: Altered Mental Status Stated Complaint: ALTERED MENTAL STATUS Time Seen by Provider: 08/06/17 15:49 Past History - Past Medical History COPD: No Dementia: Yes (ADVANCED ALZHEIMERS) Disorders: Yes (RENAL INSUFFICIENCY) HTN: Yes - Suicide/Smoking/Psychosocial Hx Smoking History: Former smoker Have you smoked in the past 12 months: No If you are a former smoker, when did you quit?: 20 YEARS AGO Information on smoking cessation initiated: No Hx Alcohol Use: No Drug/Substance Use Hx: No Substance Use Type: None <Jonnie Morrell - Last Filed: 08/06/17 18:59> <Holly Calixto - Last Filed: 08/06/17 19:02> - Past Medical History Allergies/Adverse Reactions: Allergies Allergy/AdvReac Type Severity Reaction Status Date / Time No Known Allergies Allergy Verified 08/06/17 15:51 Home Medications: Ambulatory Orders Acetaminophen [Non-Aspirin Pain Relief] 650 mg PO Q6H PRN 07/20/17 Amlodipine Besylate 5 mg PO DAILY 07/20/17 Atorvastatin Ca [Lipitor] 80 mg PO DAILY 07/20/17 Levetiracetam [Keppra Oral Solution -] 500 mg PO BID 07/20/17 Potassium Chloride [Klor-Con] 10 meq PO DAILY 07/20/17 Amino Acids/Protein Hydrolys [Prosource No Carb Liquid Pkt] 30 ml PO BID@0800, 1730 #60 packet 07/24/17 Review of Systems - Review of Systems Able to Perform ROS?: Yes Comments:: 08/06/17 17:28 GENERAL/CONSTITUTIONAL: Yes weakness. No fever or chills. HEAD, EYES, EARS, NOSE AND THROAT: No change in vision. No ear pain or discharge. No sore throat. CARDIOVASCULAR: No chest pain or shortness of breath. RESPIRATORY: No cough, wheezing, or hemoptysis. GASTROINTESTINAL: No nausea, vomiting, diarrhea or constipation. GENITOURINARY: No dysuria, frequency, or change in urination. MUSCULOSKELETAL: No joint or muscle swelling or pain. No neck or back pain. SKIN: No rash NEUROLOGIC: Yes increased confusion. No headache, vertigo, loss of consciousness , or change in strength/sensation. ENDOCRINE: Yes decreased appetite, weight loss. No increased thirst. HEMATOLOGIC/LYMPHATIC: No anemia, easy bleeding, or history of blood clots. ALLERGIC/IMMUNOLOGIC: No hives or skin allergy. <Holly Calixto - Last Filed: 08/06/17 19:02> *Physical Exam - Vital Signs Last Vital Signs Temp Pulse Resp BP Pulse Ox 97.8 F 97 H 20 103/82 100 08/06/17 15:51 08/06/17 15:51 08/06/17 15:51 08/06/17 15:51 08/06/17 15:51 <Jonnie Morrell - Last Filed: 08/06/17 18:59> - Vital Signs Last Vital Signs Temp Pulse Resp BP Pulse Ox 97.8 F 97 H 20 103/82 100 08/06/17 15:51 08/06/17 15:51 08/06/17 15:51 08/06/17 15:51 08/06/17 15:51 - Physical Exam Comments: 08/06/17 17:28 GENERAL: Cachectic female, breathing easily, unable to cooperate with exam or interact. No apparent distress. HEAD: No signs of trauma EYES: PERRLA, EOMI, sclera anicteric, conjunctiva clear ENT: Auricles normal inspection, hearing grossly normal, nares patent, oropharynx clear without exudates. Dry mucosa NECK: Normal ROM, supple, no lymphadenopathy, JVD, or masses LUNGS: Breath sounds equal, clear to auscultation bilaterally. No wheezes, and no crackles HEART: Regular rate and rhythm, normal S1 and S2, no murmurs, rubs or gallops ABDOMEN: Soft, nontender, normoactive bowel sounds. No guarding, no rebound. No masses EXTREMITIES: Normal range of motion, no edema. No clubbing or cyanosis. No cords, erythema, or tenderness NEUROLOGICAL: Noncommunicative and unable to follow commands. Arouses to loud voice and interacts somewhat appropriately with her . SKIN: Warm, Dry, normal turgor, no rashes or lesions noted. <Holly Calixto - Last Filed: 08/06/17 19:02> Heart Score/ECG Review - ECG Intrepretation Comment:: 08/06/17 19:01 Vent Rate: 83 bpm IMPRESSION: Accelerated junctional rhythm. <Holly Calixto - Last Filed: 08/06/17 19:02> ED Treatment Course - LABORATORY CBC & Chemistry Diagram: 08/06/17 18:30 08/06/17 16:10 <Jonnie Morrell - Last Filed: 08/06/17 18:59> - LABORATORY CBC & Chemistry Diagram: 08/06/17 18:30 08/06/17 16:10 - ADDITIONAL ORDERS Additional order review: 08/06/17 16:10 RBC Cancelled MCV Cancelled MCHC Cancelled RDW Cancelled MPV Cancelled Neutrophils % Cancelled Lymphocytes % Cancelled Monocytes % Cancelled Eosinophils % Cancelled Basophils % Cancelled <Holly Calixto - Last Filed: 08/06/17 19:02> *DC/Admit/Observation/Transfer - Discharge Dispostion Admit: Yes <Jonnie Morrell - Last Filed: 08/06/17 18:59> - Attestations Scribe Attestion: 08/06/17 17:28 Documentation prepared by Holly Calixto, acting as medical assisting instructor for Jonnie Morrell DO. <Holly Calixto - Last Filed: 08/06/17 19:02> Diagnosis at time of Disposition: Dehydration, Acute hypernatremia Altered mental status, unspecified Qualifiers: Altered mental status type: transient alteration of awareness Qualified Code(s) : R40.4 - Transient alteration of awareness - Discharge Dispostion Condition at time of disposition: Improved
[2017-08-06 17:30] LABS: CHLORIDE 119 mmol/L (98-107); SODIUM 156 mmol/L (136-145)
[2017-08-06 17:38] LABS: ALBUMIN 4.2 g/dl (3.4-5.0); ALK PHOS 104 U/L (45-117); ANION GAP 8 (8-16); BILIRUBIN,TOTAL 0.7 mg/dL (0.2-1.0); BLOOD UREA NITROGEN 17 mg/dL (7-18); CALCIUM 9.6 mg/dL (8.5-10.1); CO2 29 mmol/L (21-32); CREATININE 1.1 mg/dL (0.55-1.02); GLUCOSE,RANDOM 94 mg/dL (74-106); SGPT/ALT 30 U/L (12-78); TOT PROT 8.2 g/dl (6.4-8.2)
[2017-08-06 17:39] LABS: POTASSIUM 3.8 mmol/L (3.5-5.1)
[2017-08-06 17:40] LABS: SGOT/AST 39 U/L (15-37)
[2017-08-06 18:39] LABS: BASO % 0.5 % (0-2.0); EOS % 0.4 % (0-4.5); HEMATOCRIT 38.2 % (32.4-45.2); HEMOGLOBIN 12.4 GM/dL (10.7-15.3); LYMPH % 16.5 % (8-40); MCH 28.1 pg (25.7-33.7); MCHC 32.4 g/dl (32.0-36.0); MEAN CELL VOLUME 86.7 fl (80-96); MEAN PLT VOLUME 10.2 fl (7.5-11.1); MONO % 4.3 % (3.8-10.2); NEUT % 78.3 % (42.8-82.8); PLATELET COUNT 244 K/MM3 (134-434); RBC 4.41 M/mm3 (3.60-5.2); RDW 14.7 % (11.6-15.6); WHITE BLOOD COUNT 9.6 K/mm3 (4.0-10.0)
[2017-08-06] MEDS ORDERED: SODIUM CHLORIDE 1,000 ML IV SCH (19:00)
[2017-08-06 19:12] LABS: URINE APPEARANCE CLOUDY; URINE BILIRUBIN NEGATIVE (NEGATIVE); URINE BLOOD 2+ (NEGATIVE); URINE COLOR DKYELLOW; URINE GLUCOSE (UA) NEGATIVE (NEGATIVE); URINE KETONE NEGATIVE (NEGATIVE); URINE NITRITE POSITIVE (NEGATIVE)
[2017-08-06 19:25] LABS: URINE PROTEIN 1+ (NEGATIVE)
[2017-08-06 20:48] LABS: URINE BACTERIA MANY /hpf (NONE SEEN); URINE HYALINE CAST 4 /lpf; URINE MUCUS MODERATE
--- NOTE | 2017-08-06 21:11 | HP ---
Admitting History and Physical - Primary Care Physician PCP: Abi Scales - Admission History of Present Illness: 67 year old female, with a significant past medical history of Alzheimers/ dementia, renal insufficiency, and hypertension, who presents to the emergency department with increased confusion, loss of appetite, and generalized weakness for approximately 2 weeks. As per (patients primary medical doctor nuclear medicine), the patient has decreased appetite for several days, has become extremely weak and more confused than at her baseline. reports the patients visiting nurse recommended the patient follow-up with her PCP for possible G tube placement due to significant weight loss. denies patient has had no recent fever, nausea, vomiting, diarrhea, or constipation. Patient has no complaints at this time and cannot cooperate with exam due to history of dementia. Family has decided she needs a PEG tube. Though she has no primary doctor affiliated with [facility], family likes the patient care here, and desires PEG tube placement. reports the reason he came here is because the PEG tube procedure could not be done at [facility]. 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 - Smoking History Smoking history: Former smoker Have you smoked in the past 12 months: No If you are a former smoker, when did you quit?: 20 YEARS AGO - Alcohol/Substance Use Hx Alcohol Use: No Home Medications - Allergies Allergies/Adverse Reactions: Allergies Allergy/AdvReac Type Severity Reaction Status Date / Time No Known Allergies Allergy Verified 08/06/17 15:51 - Home Medications Home Medications: Ambulatory Orders Acetaminophen [Non-Aspirin Pain Relief] 650 mg PO Q6H PRN 07/20/17 Amlodipine Besylate 5 mg PO DAILY 07/20/17 Atorvastatin Ca [Lipitor] 80 mg PO DAILY 07/20/17 Levetiracetam [Keppra Oral Solution -] 500 mg PO BID 07/20/17 Potassium Chloride [Klor-Con] 10 meq PO DAILY 07/20/17 Amino Acids/Protein Hydrolys [Prosource No Carb Liquid Pkt] 30 ml PO BID@0800, 1730 #60 packet 07/24/17 Levofloxacin [Levaquin] 500 mg PO DAILY #7 tablet 08/07/17 Physical Examination Vital Signs: Vital Signs Temperature 97.8 F 08/06/17 15:51 Pulse Rate 78 08/06/17 19:48 Respiratory Rate 18 08/06/17 19:48 Blood Pressure 130/82 08/06/17 19:48 O2 Sat by Pulse Oximetry (%) 99 08/06/17 19:48 HENT: Yes: Atraumatic Neck: Yes: Supple Cardiovascular: Yes: Regular Rate and Rhythm Respiratory: Yes: CTA Bilaterally Gastrointestinal: Yes: Normal Bowel Sounds Extremities: Yes: WNL Labs: CBC, BMP 08/06/17 18:30 08/06/17 16:10 Problem List - Problems (1) Acute hypernatremia Assessment/Plan: iv hydration Code(s): E87.0 - HYPEROSMOLALITY AND HYPERNATREMIA (2) Altered mental status, unspecified Code(s): R41.82 - ALTERED MENTAL STATUS, UNSPECIFIED Qualifiers: Altered mental status type: transient alteration of awareness Qualified Code(s): R40.4 - Transient alteration of awareness (3) Dehydration Code(s): E86.0 - DEHYDRATION (4) Dementia Code(s): F03.90 - UNSPECIFIED DEMENTIA WITHOUT BEHAVIORAL DISTURBANCE (5) Failure to thrive Assessment/Plan: family requesting peg gi consult Code(s): [id number] - (6) UTI (urinary tract infection) Assessment/Plan: stary abx sent cxs Code(s): N39.0 - URINARY TRACT INFECTION, SITE NOT SPECIFIED Assessment/Plan Laboratory Results - last 24 hr 08/06/17 08/06/17 08/06/17 16:10 16:10 18:30 WBC Cancelled 9.6 Corrected WBC (auto) Cancelled RBC Cancelled 4.41 Hgb Cancelled 12.4 Hct Cancelled 38.2 MCV Cancelled 86.7 MCH Cancelled 28.1 MCHC Cancelled 32.4 RDW Cancelled 14.7 Plt Count Cancelled 244 MPV Cancelled 10.2 Neutrophils % Cancelled 78.3 Lymphocytes % Cancelled 16.5 Monocytes % Cancelled 4.3 Eosinophils % Cancelled 0.4 Basophils % Cancelled 0.5 Platelet Comment Cancelled Sodium 156 H Potassium 3.8 Chloride 119 H Carbon Dioxide 29 Anion Gap 8 BUN 17 D Creatinine 1.1 H D Creat Clearance w eGFR 49.54 Random Glucose 94 Calcium 9.6 Total Bilirubin 0.7 AST 39 H D ALT 30 D Alkaline Phosphatase 104 D Total Protein 8.2 Albumin 4.2 Urine Color Urine Appearance Urine pH Ur Specific Apison Urine Protein Urine Glucose (UA) Urine Ketones Urine Blood Urine Nitrite Urine Bilirubin Urine Urobilinogen Urine WBC (Auto) Urine RBC (Auto) Urine Bacteria Hyaline Casts Urine Mucus 08/06/17 18:52 WBC Corrected WBC (auto) RBC Hgb Hct MCV MCH MCHC RDW Plt Count MPV Neutrophils % Lymphocytes % Monocytes % Eosinophils % Basophils % Platelet Comment Sodium Potassium Chloride Carbon Dioxide Anion Gap BUN Creatinine Creat Clearance w eGFR Random Glucose Calcium Total Bilirubin AST ALT Alkaline Phosphatase Total Protein Albumin Urine Color Dkyellow Urine Appearance Cloudy Urine pH 5.0 Ur Specific Apison 1.014 Urine Protein 1+ H Urine Glucose (UA) Negative Urine Ketones Negative Urine Blood 2+ H Urine Nitrite Positive Urine Bilirubin Negative Urine Urobilinogen 2.0 H Urine WBC (Auto) 46 Urine RBC (Auto) 7 Urine Bacteria Many Hyaline Casts 4 Urine Mucus Moderate Active Medications Generic Name Dose Route Start Last Admin Trade Name Freq PRN Reason Stop Dose Admin Amlodipine Besylate 5 mg 08/07/17 10:00 Norvasc - PO DAILY [facility] Atorvastatin Calcium 80 mg 08/07/17 10:00 Lipitor - PO DAILY [facility] Sodium Chloride 1,000 mls @ 150 mls/hr 08/06/17 19:00 08/06/17 19:41 Normal Saline - IV 150 mls/hr ASDIR MIGUEL Administration Levetiracetam 500 mg 08/06/17 22:00 Keppra Oral Solution - PO BID [facility]
[2017-08-06] MEDS: DEXTROSE 5%-0.45% SALINE 1,000 ML IV SCH (21:29)
[2017-08-06 21:52] LABS: URINE LEUK ESTERASE 3+ (NEGATIVE)
[2017-08-07] MEDS: levETIRAcetam 500 MG/5 ML ORAL SOLUTION (UNIT-DOSE CUPS) PO SCH ×3 (03:53→22:18)
[2017-08-07] MEDS: DEXTROSE 5%-0.45% SALINE 1,000 ML IV SCH ×2 (04:13→22:19)
[2017-08-07 08:01] VITALS: BMI 13.1
[2017-08-07 08:54] LABS: INR 1.17 (0.82-1.09); PROTHROMBIN TIME (PATIENT) 13.2 SEC (9.98-11.88)
[2017-08-07] MEDS ORDERED: PT OWN MED DRAWER 7, Y5N ONE ×2 (09:35→21:36)
[2017-08-07] MEDS ORDERED: amLODIPine BESYLATE 5 MG TABLET (FP) PO SCH (10:00)
--- NOTE | 2017-08-07 14:03 | CON.GI ---
Consult Consult Specialty:: gastroenterology Referred by:: Dr Scales - History of Present Illness Chief Complaint: failure to thrive History of Present Illness: The patient was transferrred to [facility] for PEG insertion. The patient has advance dementia and was noted to ghave failure to thrive. She had progressive weight loss. They were afraid of aspiration as patient is being spoon fed. He consulted his children and would like the tube to be inserted. 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 - Alcohol/Substance Use Hx Alcohol Use: No - Smoking History Smoking history: Former smoker Have you smoked in the past 12 months: No If you are a former smoker, when did you quit?: 20 YEARS AGO Home Medications - Allergies Allergies/Adverse Reactions: Allergies Allergy/AdvReac Type Severity Reaction Status Date / Time No Known Allergies Allergy Verified 08/06/17 15:51 - Home Medications Home Medications: Ambulatory Orders Acetaminophen [Non-Aspirin Pain Relief] 650 mg PO Q6H PRN 07/20/17 Amlodipine Besylate 5 mg PO DAILY 07/20/17 Atorvastatin Ca [Lipitor] 80 mg PO DAILY 07/20/17 Levetiracetam [Keppra Oral Solution -] 500 mg PO BID 07/20/17 Potassium Chloride [Klor-Con] 10 meq PO DAILY 07/20/17 Amino Acids/Protein Hydrolys [Prosource No Carb Liquid Pkt] 30 ml PO BID@0800, 1730 #60 packet 07/24/17 Physical Exam-GI Vital Signs: Vital Signs Temperature 97.3 F L 08/07/17 10:00 Pulse Rate 63 08/07/17 10:00 Respiratory Rate 18 08/07/17 10:00 Blood Pressure 113/73 08/07/17 10:00 O2 Sat by Pulse Oximetry (%) 99 08/07/17 05:08 Constitutional: Yes: Well Nourished Eyes: Yes: Conjunctiva Clear HENT: Yes: Atraumatic Neck: Yes: Trachea Midline Cardiovascular: Yes: Regular Rate and Rhythm Respiratory: Yes: CTA Bilaterally Gastrointestinal Inspection: Yes: Distention ...Palpate: Yes: Soft. No: Firm/Rigid, Guarding, Hepatomegaly, Mass, Pulsatile Mass, Splenomegaly, Tenderness, Tenderness, Epigastium Labs: CBC, BMP 08/06/17 18:30 08/06/17 16:10 INR, PTT INR 1.17 (0.82-1.09) H 08/07/17 07:55 CBC,CMP WBC 9.6 K/mm3 (4.0-10.0) 08/06/17 18:30 Corrected WBC (auto) Cancelled 08/06/17 16:10 RBC 4.41 M/mm3 (3.60-5.2) 08/06/17 18:30 Hgb 12.4 GM/dL (10.7-15.3) 08/06/17 18:30 Hct 38.2 % (32.4-45.2) 08/06/17 18:30 MCV 86.7 fl (80-96) 08/06/17 18:30 MCH 28.1 pg (25.7-33.7) 08/06/17 18:30 MCHC 32.4 g/dl (32.0-36.0) 08/06/17 18:30 RDW 14.7 % (11.6-15.6) 08/06/17 18:30 Plt Count 244 K/MM3 (134-434) 08/06/17 18:30 MPV 10.2 fl (7.5-11.1) 08/06/17 18:30 Neutrophils % 78.3 % (42.8-82.8) 08/06/17 18:30 Lymphocytes % 16.5 % (8-40) 08/06/17 18:30 Monocytes % 4.3 % (3.8-10.2) 08/06/17 18:30 Eosinophils % 0.4 % (0-4.5) 08/06/17 18:30 Basophils % 0.5 % (0-2.0) 08/06/17 18:30 Platelet Comment Cancelled 08/06/17 16:10 Sodium 156 mmol/L (136-145) H 08/06/17 16:10 Potassium 3.8 mmol/L (3.5-5.1) 08/06/17 16:10 Chloride 119 mmol/L (98-107) H 08/06/17 16:10 Carbon Dioxide 29 mmol/L (21-32) 08/06/17 16:10 Anion Gap 8 (8-16) 08/06/17 16:10 BUN 17 mg/dL (7-18) D 08/06/17 16:10 Creatinine 1.1 mg/dL (0.55-1.02) H D 08/06/17 16:10 Creat Clearance w eGFR 49.54 (>60) 08/06/17 16:10 Random Glucose 94 mg/dL (74-106) 08/06/17 16:10 Calcium 9.6 mg/dL (8.5-10.1) 08/06/17 16:10 Total Bilirubin 0.7 mg/dL (0.2-1.0) 08/06/17 16:10 AST 39 U/L (15-37) H D 08/06/17 16:10 ALT 30 U/L (12-78) D 08/06/17 16:10 Alkaline Phosphatase 104 U/L (45-117) D 08/06/17 16:10 Total Protein 8.2 g/dl (6.4-8.2) 08/06/17 16:10 Albumin 4.2 g/dl (3.4-5.0) 08/06/17 16:10 Problem List - Problems (1) Failure to thrive Assessment/Plan: associated with dehydration R> informed consent obtained from her . Complications including infection and colonic fistula was discussed Code(s): [id number] -
[2017-08-07] MEDS ORDERED: ceFAZolin SODIUM 1 GM VIAL ONE (14:50)
[2017-08-07] MEDS ORDERED: CEFAZOLIN 1 GM/D5W 1 GRAM/50 ML BAG IVPB ONE (14:56)
--- NOTE | 2017-08-07 20:49 | PN ---
Progress Note, Physician - Current Medication List Current Medications: Active Medications Amlodipine Besylate (Norvasc -) 5 mg PO DAILY [facility] Atorvastatin Calcium (Lipitor -) 80 mg PO HS [facility] Dextrose/Sodium Chloride (D5-1/2ns -) 1,000 mls @ 75 mls/hr IV ASDIR [facility] Levofloxacin (Levaquin 500 Mg Premixed Ivpb -) 500 mg in 100 mls @ 100 mls/hr IVPB DAILY ONE Stop: 08/07/17 21:43 Levetiracetam (Keppra Oral Solution -) 500 mg PO BID [facility] - Objective Vital Signs: Vital Signs Temperature 97.2 F L 08/07/17 19:00 Pulse Rate 73 08/07/17 19:00 Respiratory Rate 18 08/07/17 19:00 Blood Pressure 135/73 08/07/17 19:00 O2 Sat by Pulse Oximetry (%) 99 08/07/17 15:29 Constitutional: Yes: No Distress HENT: Yes: Atraumatic Neck: Yes: Supple Cardiovascular: Yes: Regular Rate and Rhythm Respiratory: Yes: Rhonchi Gastrointestinal: Yes: Other (peg in place) Extremities: Yes: Other (contractures) Edema: No Labs: CBC, BMP 08/06/17 18:30 08/06/17 16:10 INR, PTT INR 1.17 (0.82-1.09) H 08/07/17 07:55 Problem List - Problems (1) Acute hypernatremia Assessment/Plan: iv hydration fu labs Code(s): E87.0 - HYPEROSMOLALITY AND HYPERNATREMIA (2) Altered mental status, unspecified Code(s): R41.82 - ALTERED MENTAL STATUS, UNSPECIFIED Qualifiers: Altered mental status type: transient alteration of awareness Qualified Code(s): R40.4 - Transient alteration of awareness (3) Dehydration Code(s): E86.0 - DEHYDRATION (4) Dementia Code(s): F03.90 - UNSPECIFIED DEMENTIA WITHOUT BEHAVIORAL DISTURBANCE (5) Failure to thrive Assessment/Plan: PEG PLACED Code(s): [id number] - (6) UTI (urinary tract infection) Assessment/Plan: start abx sent cxs Code(s): N39.0 - URINARY TRACT INFECTION, SITE NOT SPECIFIED
[2017-08-07 21:53] LABS: BASO % 0.2 % (0-2.0); EOS % 0.1 % (0-4.5); HEMATOCRIT 36.6 % (32.4-45.2); HEMOGLOBIN 11.8 GM/dL (10.7-15.3); LYMPH % 9.1 % (8-40); MCH 27.8 pg (25.7-33.7); MCHC 32.1 g/dl (32.0-36.0); MEAN CELL VOLUME 86.7 fl (80-96); MEAN PLT VOLUME 11.3 fl (7.5-11.1); MONO % 3.7 % (3.8-10.2); NEUT % 86.9 % (42.8-82.8); PLATELET COUNT 204 K/MM3 (134-434); RBC 4.23 M/mm3 (3.60-5.2); RDW 15.1 % (11.6-15.6); WHITE BLOOD COUNT 10.5 K/mm3 (4.0-10.0)
[2017-08-07] MEDS ORDERED: ATORVASTATIN CA 80 MG TABLET (FP) PO SCH (22:00)
[2017-08-07] MEDS: ATORVASTATIN CA 80 MG TABLET (FP) PO SCH (22:18)
[2017-08-07] MEDS: LEVOFLOXACIN 500 MG IVPB 500 MG/100 ML BAG IVPB SCH (22:19)
[2017-08-07 22:37] LABS: ALBUMIN 3.4 g/dl (3.4-5.0); ANION GAP 7 (8-16); BILIRUBIN,TOTAL 0.5 mg/dL (0.2-1.0); BLOOD UREA NITROGEN 16 mg/dL (7-18); CALCIUM 8.9 mg/dL (8.5-10.1); CHLORIDE 119 mmol/L (98-107); CO2 28 mmol/L (21-32); CREATININE 0.9 mg/dL (0.55-1.02); GLUCOSE,RANDOM 90 mg/dL (74-106); POTASSIUM 3.8 mmol/L (3.5-5.1); SGOT/AST 30 U/L (15-37); SGPT/ALT 25 U/L (12-78); SODIUM 154 mmol/L (136-145)
[2017-08-07 22:38] LABS: ALK PHOS 91 U/L (45-117)
[2017-08-08] MEDS: DEXTROSE 5%-0.45% SALINE 1,000 ML IV SCH ×2 (06:47→22:09)
--- NOTE | 2017-08-08 07:51 | EKG ---
Test Reason : Blood Pressure : / mmHG Vent. Rate : 083 BPM Atrial Rate : 084 BPM P-R Int : 000 ms QRS Dur : 080 ms QT Int : 390 ms P-R-T Axes : 000 082 053 degrees QTc Int : 458 ms POOR DATA QUALITY, INTERPRETATION MAY BE ADVERSELY AFFECTED ACCELERATED JUNCTIONAL RHYTHM ABNORMAL ECG WHEN COMPARED WITH ECG OF 20-JUL-2017 12:41, NO SIGNIFICANT CHANGE WAS FOUND Confirmed by Wayne Hurst ([id number]) on 08/07/2017 2:47:22 PM Also confirmed by MD Hurst Daniel ([id number]), tape editor WAYNE HERNANDEZ ([id number]) on 08/08/2017 7:51:03 AM Referred By: Confirmed By:Wayne Hurst MD
[2017-08-08] MEDS ORDERED: PT OWN MED DRAWER 7, Y5N ONE ×2 (11:00→21:10)
[2017-08-08] MEDS: levETIRAcetam 500 MG/5 ML ORAL SOLUTION (UNIT-DOSE CUPS) PO SCH ×2 (11:03→22:10)
[2017-08-08] MEDS: amLODIPine BESYLATE 5 MG TABLET (FP) PO SCH ×2 (11:03→11:20)
[2017-08-08] MEDS: LEVOFLOXACIN 500 MG IVPB 500 MG/100 ML BAG IVPB SCH (11:03)
--- NOTE | 2017-08-08 18:27 | PN ---
Progress Note, Physician History of Present Illness: stable - Current Medication List Current Medications: Active Medications Amlodipine Besylate (Norvasc -) 5 mg PO DAILY [facility] Last Admin: 08/08/17 11:20 Dose: 5 mg Atorvastatin Calcium (Lipitor -) 80 mg PO HS [facility] Last Admin: 08/07/17 22:18 Dose: 80 mg Dextrose/Sodium Chloride (D5-1/2ns -) 1,000 mls @ 75 mls/hr IV ASDIR [facility] Last Admin: 08/08/17 06:47 Dose: 75 mls/hr Levofloxacin (Levaquin 500 Mg Premixed Ivpb -) 500 mg in 100 mls @ 100 mls/hr IVPB DAILY [facility] Last Admin: 08/08/17 11:03 Dose: 100 mls/hr Levetiracetam (Keppra Oral Solution -) 500 mg PO BID [facility] Last Admin: 08/08/17 11:03 Dose: 500 mg - Objective Vital Signs: Vital Signs Temperature 98.7 F 08/08/17 14:54 Pulse Rate 89 08/08/17 14:54 Respiratory Rate 18 08/08/17 14:54 Blood Pressure 114/72 08/08/17 14:54 O2 Sat by Pulse Oximetry (%) 99 08/07/17 21:00 Constitutional: Yes: No Distress HENT: Yes: Atraumatic Neck: Yes: Supple Cardiovascular: Yes: Regular Rate and Rhythm Respiratory: Yes: CTA Bilaterally Extremities: Yes: WNL Neurological: Yes: Alert, Oriented Labs: CBC, BMP 08/07/17 21:30 08/07/17 21:30 INR, PTT INR 1.17 (0.82-1.09) H 08/07/17 07:55 Problem List - Problems (1) Acute hypernatremia Assessment/Plan: iv hydration fu labs Code(s): E87.0 - HYPEROSMOLALITY AND HYPERNATREMIA (2) Altered mental status, unspecified Code(s): R41.82 - ALTERED MENTAL STATUS, UNSPECIFIED Qualifiers: Altered mental status type: transient alteration of awareness Qualified Code(s): R40.4 - Transient alteration of awareness (3) Dehydration Assessment/Plan: on ivf Code(s): E86.0 - DEHYDRATION (4) Dementia Code(s): F03.90 - UNSPECIFIED DEMENTIA WITHOUT BEHAVIORAL DISTURBANCE (5) Failure to thrive Code(s): [id number] - (6) UTI (urinary tract infection) Assessment/Plan: start abx sent cxs..ecoli? Code(s): N39.0 - URINARY TRACT INFECTION, SITE NOT SPECIFIED
[2017-08-08] MEDS: ATORVASTATIN CA 80 MG TABLET (FP) PO SCH (22:10)
[2017-08-08] MEDS ORDERED: ACETAMINOPHEN 650 MG/20.3 ML ORAL SOLUTION (CUPS) PEG PRN (22:56)
[2017-08-08] MEDS ORDERED: PIPERACILLIN/TAZOB 3.375 GM 3.375 GM in DEXTROSE 5%-WATER - 50 ML IVPB ONE (23:00)
[2017-08-09 07:46] LABS: BASO % 0.3 % (0-2.0); EOS % 0.3 % (0-4.5); HEMATOCRIT 29.3 % (32.4-45.2); HEMOGLOBIN 9.6 GM/dL (10.7-15.3); LYMPH % 9.9 % (8-40); MCH 28.2 pg (25.7-33.7); MCHC 32.8 g/dl (32.0-36.0); MEAN CELL VOLUME 85.7 fl (80-96); MEAN PLT VOLUME 11.4 fl (7.5-11.1); NEUT % 85.5 % (42.8-82.8); PLATELET COUNT 145 K/MM3 (134-434); RBC 3.41 M/mm3 (3.60-5.2); RDW 14.4 % (11.6-15.6); WHITE BLOOD COUNT 8.9 K/mm3 (4.0-10.0)
[2017-08-09 07:55] LABS: ALBUMIN 2.5 g/dl (3.4-5.0); ANION GAP 5 (8-16); BLOOD UREA NITROGEN 12 mg/dL (7-18); CALCIUM 7.4 mg/dL (8.5-10.1); CHLORIDE 116 mmol/L (98-107); CO2 28 mmol/L (21-32); GLUCOSE,RANDOM 123 mg/dL (74-106); POTASSIUM 3.2 mmol/L (3.5-5.1); SODIUM 149 mmol/L (136-145)
[2017-08-09 07:59] LABS: ALK PHOS 75 U/L (45-117); BILIRUBIN,TOTAL 0.6 mg/dL (0.2-1.0); CREATININE 0.9 mg/dL (0.55-1.02); SGOT/AST 57 U/L (15-37); SGPT/ALT 38 U/L (12-78); TOT PROT 5.3 g/dl (6.4-8.2)
[2017-08-09] MEDS ORDERED: PT OWN MED DRAWER 7, Y5N ONE (10:42)
[2017-08-09] MEDS: amLODIPine BESYLATE 5 MG TABLET (FP) PO SCH (10:44)
[2017-08-09] MEDS: LEVOFLOXACIN 500 MG IVPB 500 MG/100 ML BAG IVPB SCH (10:44)
[2017-08-09] MEDS: levETIRAcetam 500 MG/5 ML ORAL SOLUTION (UNIT-DOSE CUPS) PO SCH ×2 (10:45→21:47)
[2017-08-09] MEDS: DEXTROSE 5%-0.45% SALINE 1,000 ML IV SCH (15:36)
--- NOTE | 2017-08-09 16:32 | PN ---
Progress Note, Physician History of Present Illness: stable - Current Medication List Current Medications: Active Medications Acetaminophen (Tylenol Oral Solution -) 650 mg PEG Q6H PRN PRN Reason: FEVER OR PAIN Last Admin: 08/08/17 23:30 Dose: 650 mg Amlodipine Besylate (Norvasc -) 5 mg PO DAILY [facility] Last Admin: 08/09/17 10:44 Dose: Not Given Atorvastatin Calcium (Lipitor -) 80 mg PO HS [facility] Last Admin: 08/08/17 22:10 Dose: 80 mg Dextrose/Sodium Chloride (D5-1/2ns -) 1,000 mls @ 75 mls/hr IV ASDIR [facility] Last Admin: 08/09/17 15:36 Dose: 75 mls/hr Levofloxacin (Levaquin 500 Mg Premixed Ivpb -) 500 mg in 100 mls @ 100 mls/hr IVPB DAILY [facility] Last Admin: 08/09/17 10:44 Dose: 100 mls/hr Levetiracetam (Keppra Oral Solution -) 500 mg PO BID [facility] Last Admin: 08/09/17 10:45 Dose: 500 mg - Objective Vital Signs: Vital Signs Temperature 99.1 F 08/09/17 14:56 Pulse Rate 80 08/09/17 14:56 Respiratory Rate 22 08/09/17 14:56 Blood Pressure 100/61 08/09/17 14:56 O2 Sat by Pulse Oximetry (%) 99 08/08/17 21:00 Constitutional: Yes: No Distress HENT: Yes: Atraumatic Neck: Yes: Supple Cardiovascular: Yes: Regular Rate and Rhythm Respiratory: Yes: CTA Bilaterally Gastrointestinal: Yes: Normal Bowel Sounds, Other (peg in place) Extremities: Yes: Other (contractures) Labs: CBC, BMP 08/09/17 06:30 08/09/17 06:30 INR, PTT INR 1.17 (0.82-1.09) H 08/07/17 07:55 Problem List - Problems (1) Acute hypernatremia Assessment/Plan: iv hydration improving Code(s): E87.0 - HYPEROSMOLALITY AND HYPERNATREMIA (2) Altered mental status, unspecified Code(s): R41.82 - ALTERED MENTAL STATUS, UNSPECIFIED Qualifiers: Altered mental status type: transient alteration of awareness Qualified Code(s): R40.4 - Transient alteration of awareness (3) Dehydration Assessment/Plan: on ivf Code(s): E86.0 - DEHYDRATION (4) Dementia Code(s): F03.90 - UNSPECIFIED DEMENTIA WITHOUT BEHAVIORAL DISTURBANCE (5) Failure to thrive Assessment/Plan: PEG PLACED on tf Code(s): [id number] - (6) UTI (urinary tract infection) Assessment/Plan: ecoli sensitive to levaquin Code(s): N39.0 - URINARY TRACT INFECTION, SITE NOT SPECIFIED
--- NOTE | 2017-08-09 17:45 | CON.ID ---
Consult Consult Specialty:: Infectious Disease - History of Present Illness History of Present Illness: Pt seen and examined. This is a 67 y.o. female with history of Alzheimer's, HTN , and renal insufficiency presenting with AMS, decrease in appetite, and generalized weakness. Admitted for peg placement. Noted to be febrile to 101.3F last night. Pt is barely responsive, no reported shortness of breath/cough, n/v/ d. 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: Yes: Alzheimer's Cardio/Vascular: Yes: HTN - Alcohol/Substance Use Hx Alcohol Use: No - Smoking History Smoking history: Former smoker Have you smoked in the past 12 months: No If you are a former smoker, when did you quit?: 20 YEARS AGO Home Medications - Allergies Allergies/Adverse Reactions: Allergies Allergy/AdvReac Type Severity Reaction Status Date / Time No Known Allergies Allergy Verified 08/06/17 15:51 - Home Medications Home Medications: Ambulatory Orders Acetaminophen [Non-Aspirin Pain Relief] 650 mg PO Q6H PRN 07/20/17 Amlodipine Besylate 5 mg PO DAILY 07/20/17 Atorvastatin Ca [Lipitor] 80 mg PO DAILY 07/20/17 Levetiracetam [Keppra Oral Solution -] 500 mg PO BID 07/20/17 Potassium Chloride [Klor-Con] 10 meq PO DAILY 07/20/17 Amino Acids/Protein Hydrolys [Prosource No Carb Liquid Pkt] 30 ml PO BID@0800, 1730 #60 packet 07/24/17 Levofloxacin [Levaquin] 500 mg PO DAILY #7 tablet 08/07/17 Review of Systems - Review of Systems Constitutional: reports: Weakness Neck: reports: No Symptoms Cardiovascular: reports: No Symptoms Respiratory: reports: No Symptoms Gastrointestinal: reports: No Symptoms Genitourinary: reports: No Symptoms Musculoskeletal: reports: No Symptoms Integumentary: reports: No Symptoms Neurological: reports: Weakness Physical Exam Vital Signs: Vital Signs Temperature 99.1 F 08/09/17 14:56 Pulse Rate 80 08/09/17 14:56 Respiratory Rate 22 08/09/17 14:56 Blood Pressure 100/61 08/09/17 14:56 O2 Sat by Pulse Oximetry (%) 99 08/08/17 21:00 Constitutional: Yes: No Distress, Other (nonverbal, noncommunicative) Neck: Yes: Supple Cardiovascular: Yes: Regular Rate and Rhythm Respiratory: Yes: CTA Bilaterally Gastrointestinal: Yes: Normal Bowel Sounds, Soft Edema: No Integumentary: Yes: WNL Neurological: Yes: Weakness Labs: CBC, BMP 08/09/17 06:30 08/09/17 06:30 Microbiology 08/08/17 00:35 Urine - Urine - Catheterized Urine Culture - Preliminary Lactose Fermenting Neg Bacilli 08/06/17 18:52 Urine - Urine - Catheterized Urine Culture - Final Escherichia Coli Problem List - Problems (1) Fever Code(s): R50.9 - FEVER, UNSPECIFIED (2) Altered mental status, unspecified Code(s): R41.82 - ALTERED MENTAL STATUS, UNSPECIFIED Qualifiers: Altered mental status type: transient alteration of awareness Qualified Code(s): R40.4 - Transient alteration of awareness (3) Failure to thrive Code(s): [id number] - (4) UTI (urinary tract infection) Code(s): N39.0 - URINARY TRACT INFECTION, SITE NOT SPECIFIED Assessment/Plan 67 y.o. female with Alzheimers, HTN, renal insufficiency presenting with AMS, fever, loss of appetite E. coli UTI - cont with Levaquin IV for now - monitor temperatures/vitals will f/u
--- NOTE | 2017-08-09 19:33 | PN ---
Progress Note, Physician History of Present Illness: stable - Current Medication List Current Medications: Active Medications Acetaminophen (Tylenol Oral Solution -) 650 mg PEG Q6H PRN PRN Reason: FEVER OR PAIN Last Admin: 08/08/17 23:30 Dose: 650 mg Amlodipine Besylate (Norvasc -) 5 mg PO DAILY [facility] Last Admin: 08/09/17 10:44 Dose: Not Given Atorvastatin Calcium (Lipitor -) 80 mg PO HS [facility] Last Admin: 08/08/17 22:10 Dose: 80 mg Dextrose/Sodium Chloride (D5-1/2ns -) 1,000 mls @ 75 mls/hr IV ASDIR [facility] Last Admin: 08/09/17 15:36 Dose: 75 mls/hr Levofloxacin (Levaquin 500 Mg Premixed Ivpb -) 500 mg in 100 mls @ 100 mls/hr IVPB DAILY [facility] Last Admin: 08/09/17 10:44 Dose: 100 mls/hr Levetiracetam (Keppra Oral Solution -) 500 mg PO BID [facility] Last Admin: 08/09/17 10:45 Dose: 500 mg Potassium Chloride (Potassium Chloride Oral Liquid) 40 meq PO BID [facility] - Objective Vital Signs: Vital Signs Temperature 99.1 F 08/09/17 14:56 Pulse Rate 80 08/09/17 14:56 Respiratory Rate 22 08/09/17 14:56 Blood Pressure 100/61 08/09/17 14:56 O2 Sat by Pulse Oximetry (%) 99 08/09/17 09:00 Constitutional: Yes: No Distress HENT: Yes: Atraumatic Neck: Yes: Supple Cardiovascular: Yes: Regular Rate and Rhythm Respiratory: Yes: CTA Bilaterally Gastrointestinal: Yes: Normal Bowel Sounds, Other (peg in place) Extremities: Yes: Other (contractures) Edema: No Neurological: Yes: Alert Labs: CBC, BMP 08/09/17 06:30 08/09/17 06:30 INR, PTT INR 1.17 (0.82-1.09) H 08/07/17 07:55 Problem List - Problems (1) Acute hypernatremia Assessment/Plan: iv hydration improving Code(s): E87.0 - HYPEROSMOLALITY AND HYPERNATREMIA (2) Altered mental status, unspecified Code(s): R41.82 - ALTERED MENTAL STATUS, UNSPECIFIED Qualifiers: Altered mental status type: transient alteration of awareness Qualified Code(s): R40.4 - Transient alteration of awareness (3) Dehydration Assessment/Plan: on ivf Code(s): E86.0 - DEHYDRATION (4) Dementia Code(s): F03.90 - UNSPECIFIED DEMENTIA WITHOUT BEHAVIORAL DISTURBANCE (5) Failure to thrive Assessment/Plan: PEG PLACED on tf Code(s): [id number] - (6) UTI (urinary tract infection) Assessment/Plan: ecoli sensitive to levaquin Code(s): N39.0 - URINARY TRACT INFECTION, SITE NOT SPECIFIED (7) Hypokalemia Assessment/Plan: will replace Code(s): E87.6 - HYPOKALEMIA
[2017-08-09] MEDS: ATORVASTATIN CA 80 MG TABLET (FP) PO SCH (21:47)
[2017-08-09] MEDS: POTASSIUM CHLORIDE ORAL LIQUID 20 MEQ/15 ML PO SCH (21:47)
[2017-08-10 07:58] LABS: BASO % 0.3 % (0-2.0); EOS % 1.8 % (0-4.5); HEMATOCRIT 29.8 % (32.4-45.2); HEMOGLOBIN 9.7 GM/dL (10.7-15.3); LYMPH % 11.7 % (8-40); MCH 27.8 pg (25.7-33.7); MCHC 32.5 g/dl (32.0-36.0); MEAN CELL VOLUME 85.4 fl (80-96); MEAN PLT VOLUME 11.3 fl (7.5-11.1); MONO % 5.2 % (3.8-10.2); PLATELET COUNT 132 K/MM3 (134-434); RBC 3.49 M/mm3 (3.60-5.2); RDW 14.7 % (11.6-15.6); WHITE BLOOD COUNT 7.6 K/mm3 (4.0-10.0)
[2017-08-10 08:21] LABS: ALBUMIN 2.4 g/dl (3.4-5.0); ANION GAP 6 (8-16); BILIRUBIN,TOTAL 0.3 mg/dL (0.2-1.0); BLOOD UREA NITROGEN 8 mg/dL (7-18); CALCIUM 7.6 mg/dL (8.5-10.1); CHLORIDE 115 mmol/L (98-107); CO2 27 mmol/L (21-32); CREATININE 0.5 mg/dL (0.55-1.02); GLUCOSE,RANDOM 105 mg/dL (74-106); POTASSIUM 3.3 mmol/L (3.5-5.1); SGOT/AST 59 U/L (15-37); SGPT/ALT 43 U/L (12-78); SODIUM 148 mmol/L (136-145); TOT PROT 5.2 g/dl (6.4-8.2)
[2017-08-10 08:22] LABS: ALK PHOS 74 U/L (45-117)
[2017-08-10] MEDS ORDERED: PT OWN MED DRAWER 7, Y5N ONE (08:25)
[2017-08-10] MEDS: LEVOFLOXACIN 500 MG IVPB 500 MG/100 ML BAG IVPB SCH (09:08)
[2017-08-10] MEDS: POTASSIUM CHLORIDE ORAL LIQUID 20 MEQ/15 ML PO SCH ×2 (09:09→22:43)
[2017-08-10] MEDS: amLODIPine BESYLATE 5 MG TABLET (FP) PO SCH (09:09)
[2017-08-10] MEDS: levETIRAcetam 500 MG/5 ML ORAL SOLUTION (UNIT-DOSE CUPS) PO SCH ×2 (09:09→22:43)
--- NOTE | 2017-08-10 11:56 | PN ---
Progress Note, Physician History of Present Illness: Pt is afebrile, without distress. - Current Medication List Current Medications: Active Medications Acetaminophen (Tylenol Oral Solution -) 650 mg PEG Q6H PRN PRN Reason: FEVER OR PAIN Last Admin: 08/08/17 23:30 Dose: 650 mg Amlodipine Besylate (Norvasc -) 5 mg PO DAILY [facility] Last Admin: 08/10/17 09:09 Dose: 5 mg Atorvastatin Calcium (Lipitor -) 80 mg PO HS [facility] Last Admin: 08/09/17 21:47 Dose: 80 mg Dextrose/Sodium Chloride (D5-1/2ns -) 1,000 mls @ 75 mls/hr IV ASDIR [facility] Last Admin: 08/09/17 15:36 Dose: 75 mls/hr Levofloxacin (Levaquin 500 Mg Premixed Ivpb -) 500 mg in 100 mls @ 100 mls/hr IVPB DAILY [facility] Last Admin: 08/10/17 09:08 Dose: 100 mls/hr Levetiracetam (Keppra Oral Solution -) 500 mg PO BID [facility] Last Admin: 08/10/17 09:09 Dose: 500 mg Potassium Chloride (Potassium Chloride Oral Liquid) 40 meq PO BID [facility] Last Admin: 08/10/17 09:09 Dose: 40 meq - Objective Vital Signs: Vital Signs Temperature 98.5 F 08/10/17 09:00 Pulse Rate 74 08/10/17 09:00 Respiratory Rate 18 08/10/17 09:00 Blood Pressure 115/65 08/10/17 09:00 O2 Sat by Pulse Oximetry (%) 100 08/09/17 21:00 Constitutional: Yes: No Distress Cardiovascular: Yes: Regular Rate and Rhythm Respiratory: Yes: CTA Bilaterally Gastrointestinal: Yes: Normal Bowel Sounds, Other (+GT) Musculoskeletal: Yes: WNL Extremities: Yes: WNL Edema: No Neurological: Yes: Weakness Labs: CBC, BMP 08/10/17 07:35 08/10/17 07:35 INR, PTT INR 1.17 (0.82-1.09) H 08/07/17 07:55 Microbiology 08/08/17 00:35 Urine - Urine - Catheterized Urine Culture - Final Escherichia Coli 08/09/17 00:30 Blood - Peripheral Venous Blood Culture - Preliminary NO GROWTH OBTAINED AFTER 24 HOURS, INCUBATION TO CONTINUE FOR 4 DAYS. 08/09/17 00:30 Blood - Peripheral Venous Blood Culture - Preliminary NO GROWTH OBTAINED AFTER 24 HOURS, INCUBATION TO CONTINUE FOR 4 DAYS. 08/06/17 18:52 Urine - Urine - Catheterized Urine Culture - Final Escherichia Coli Problem List - Problems (1) Fever Code(s): R50.9 - FEVER, UNSPECIFIED (2) Altered mental status, unspecified Code(s): R41.82 - ALTERED MENTAL STATUS, UNSPECIFIED Qualifiers: Altered mental status type: transient alteration of awareness Qualified Code(s): R40.4 - Transient alteration of awareness (3) Failure to thrive Code(s): [id number] - (4) UTI (urinary tract infection) Code(s): N39.0 - URINARY TRACT INFECTION, SITE NOT SPECIFIED Assessment/Plan 67 y.o. female with Alzheimers, HTN, renal insufficiency presenting with AMS, fever, loss of appetite, failure to thrive s/p GT placement E. coli UTI - switch to Levaquin 500 mg GT daily x 4 more days - pt currently afebrile, leukocytosis resolved, stable at this time -for possible discharge
--- NOTE | 2017-08-10 15:43 | DS ---
Physical Examination Vital Signs: Vital Signs Temperature 97.3 F L 08/10/17 14:12 Pulse Rate 75 08/10/17 14:12 Respiratory Rate 22 08/10/17 14:12 Blood Pressure 128/85 08/10/17 14:12 O2 Sat by Pulse Oximetry (%) 100 08/10/17 09:00 Labs: CBC, BMP 08/10/17 07:35 08/10/17 07:35 Discharge Summary Reason For Visit: HYPERNATREMIA Current Active Problems RENATO (acute kidney injury) (Acute) Acute hypernatremia (Acute) Altered mental status, unspecified (Acute) Dehydration (Acute) Dementia (Acute) Failure to thrive (Acute) Fever (Acute) Hypokalemia (Acute) UTI (urinary tract infection) (Acute) Condition: Improved - Instructions Diet, Activity, Other Instructions: follow the tube feed as planned by blood bank laboratory technician - Home Medications Comprehensive Discharge Medication List: Ambulatory Orders Acetaminophen [Non-Aspirin Pain Relief] 650 mg PO Q6H PRN 07/20/17 Amlodipine Besylate 5 mg PO DAILY 07/20/17 Atorvastatin Ca [Lipitor] 80 mg PO DAILY 07/20/17 Levetiracetam [Keppra Oral Solution -] 500 mg PO BID 07/20/17 Potassium Chloride [Klor-Con] 10 meq PO DAILY 07/20/17 Amino Acids/Protein Hydrolys [Prosource No Carb Liquid Pkt] 30 ml PO BID@0800, 1730 #60 packet 07/24/17 Levofloxacin [Levaquin] 500 mg PO DAILY #7 tablet 08/07/17 me home
[2017-08-10] MEDS: DEXTROSE 5%-0.45% SALINE 1,000 ML IV SCH (16:44)
--- NOTE | 2017-08-10 18:25 | PN ---
Progress Note, Physician History of Present Illness: stable - Current Medication List Current Medications: Active Medications Acetaminophen (Tylenol Oral Solution -) 650 mg PEG Q6H PRN PRN Reason: FEVER OR PAIN Last Admin: 08/08/17 23:30 Dose: 650 mg Amlodipine Besylate (Norvasc -) 5 mg PO DAILY [facility] Last Admin: 08/10/17 09:09 Dose: 5 mg Atorvastatin Calcium (Lipitor -) 80 mg PO HS [facility] Last Admin: 08/09/17 21:47 Dose: 80 mg Dextrose/Sodium Chloride (D5-1/2ns -) 1,000 mls @ 75 mls/hr IV ASDIR [facility] Last Admin: 08/10/17 16:44 Dose: Not Given Levofloxacin (Levaquin 500 Mg Premixed Ivpb -) 500 mg in 100 mls @ 100 mls/hr IVPB DAILY [facility] Last Admin: 08/10/17 09:08 Dose: 100 mls/hr Levetiracetam (Keppra Oral Solution -) 500 mg PO BID [facility] Last Admin: 08/10/17 09:09 Dose: 500 mg Potassium Chloride (Potassium Chloride Oral Liquid) 40 meq PO BID [facility] Last Admin: 08/10/17 09:09 Dose: 40 meq - Objective Vital Signs: Vital Signs Temperature 97.8 F 08/10/17 16:50 Pulse Rate 130 H 08/10/17 16:50 Respiratory Rate 26 H 08/10/17 16:50 Blood Pressure 116/80 08/10/17 16:50 O2 Sat by Pulse Oximetry (%) 100 08/10/17 09:00 Constitutional: Yes: Calm HENT: Yes: Atraumatic Neck: Yes: Supple Cardiovascular: Yes: Regular Rate and Rhythm Respiratory: Yes: CTA Bilaterally Gastrointestinal: Yes: Normal Bowel Sounds, Other (peg in place) Extremities: Yes: WNL Neurological: Yes: Alert, Oriented Labs: CBC, BMP 08/10/17 07:35 08/10/17 07:35 INR, PTT INR 1.17 (0.82-1.09) H 08/07/17 07:55 Problem List - Problems (1) Acute hypernatremia Assessment/Plan: iv hydration improving Code(s): E87.0 - HYPEROSMOLALITY AND HYPERNATREMIA (2) Altered mental status, unspecified Code(s): R41.82 - ALTERED MENTAL STATUS, UNSPECIFIED Qualifiers: Altered mental status type: transient alteration of awareness Qualified Code(s): R40.4 - Transient alteration of awareness (3) Dehydration Assessment/Plan: on ivf Code(s): E86.0 - DEHYDRATION (4) Dementia Code(s): F03.90 - UNSPECIFIED DEMENTIA WITHOUT BEHAVIORAL DISTURBANCE (5) Failure to thrive Assessment/Plan: PEG PLACED on tf Code(s): [id number] - (6) UTI (urinary tract infection) Assessment/Plan: ecoli sensitive to levaquin Code(s): N39.0 - URINARY TRACT INFECTION, SITE NOT SPECIFIED (7) Hypokalemia Code(s): E87.6 - HYPOKALEMIA Assessment/Plan pt will be going home tomorrow via ambulance want to take her home,he has to learn tube feeding 3 more days of po levaquin
[2017-08-10] MEDS: ATORVASTATIN CA 80 MG TABLET (FP) PO SCH (22:43)
[2017-08-11 00:46] VITALS: BP 93/64; PULSE 112; TEMP 97.9
--- NOTE | 2017-08-11 03:29 | RAPID ---
Physical Examination Vital Signs: Labs: CBC, BMP 08/10/17 07:35 08/10/17 07:35 Rapid Response - Rapid Response Assessment: This is a brief Code 99 summary please see Code sheet on physical chart for complete details. RN went to check vitals around 02:45 and found patient unresponsive with no pulse. Patient was last known to be responsive 3 hours prior. Code 99 called around 2:50. Code team reached there and patient had no pulse and her eyes were already fixed and dilated. CPR/ACLS protocol was started immediately. Patient was in asystole on monitor. 2 epinephrines and 1 amp of bicarbonate was given. After a long unsuccessful attempt at ROSC the decision was made to stop CPR. On exam the patient did not respond to verbal or physical stimuli and no spontaneous movement was observed. Absent heart and breath sounds for more than one minute. Absent peripheral pulses. Pupils are fixed and dilated, corneal reflex was absent. was contacted immediately and has been informed. Attempted to contact PCP with a voice message left. Time of : 03:00 Code lasted for 10 minutes Briefly, patient is a 67 year old female with a PMHx of Alzheimers dementia, CKD , HTN who presented for confusion, anorexia, weakness and increased altered mental status for the last two weeks. Patient had PEG placement during this admission due to failure to thrive and was found to have a UTI for which she was receiving treatment for. Patient was ready for discharge yesterday () but was unable to leave due to a problem with visiting nurse.
--- NOTE | 2017-08-11 19:17 | DS ---
Physical Examination Vital Signs: Vital Signs Temperature 97.9 F 08/10/17 22:00 Pulse Rate 112 H 08/10/17 22:00 Respiratory Rate 20 08/10/17 22:00 Blood Pressure 93/64 08/10/17 22:00 O2 Sat by Pulse Oximetry (%) 100 08/10/17 09:00 Labs: CBC, BMP 08/10/17 07:35 08/10/17 07:35 Discharge Summary Reason For Visit: HYPERNATREMIA Condition: - Instructions Diet, Activity, Other Instructions: follow the tube feed as planned by tannery gummer PO LEVAQUIN 3 MORE DAYS Disposition: - Home Medications Comprehensive Discharge Medication List: Ambulatory Orders Acetaminophen [Non-Aspirin Pain Relief] 650 mg PO Q6H PRN 07/20/17 Amlodipine Besylate 5 mg PO DAILY 07/20/17 Atorvastatin Ca [Lipitor] 80 mg PO DAILY 07/20/17 Levetiracetam [Keppra Oral Solution -] 500 mg PO BID 07/20/17 Potassium Chloride [Klor-Con] 10 meq PO DAILY 07/20/17 Amino Acids/Protein Hydrolys [Prosource No Carb Liquid Pkt] 30 ml PO BID@0800, 1730 #60 packet 07/24/17 Levofloxacin [Levaquin] 500 mg PO DAILY #7 tablet 08/07/17
== END 2017-08-11 03:00 | disposition expired | DRG 56 ==
LOC: JER 15:41 → INTOOBSV 18:59 → JERBED 18:59 → OBSVTOIN 21:05 → J5S 08-07 02:34 → J8W 08-10 21:32
PROVIDERS: ADMIT Internal Medicine; ATTEND Internal Medicine
PROC: 0DH63UZ Insertion of Feeding Device into Stomach, Percutaneous Approach (ICD-10-PCS; 2017-08-07)
PROC: 5A12012 Performance of Cardiac Output, Single, Manual (ICD-10-PCS; principal; 2017-08-11)
DX: G30.9 Alzheimer's disease, unspecified (principal); R53.2 Functional quadriplegia; G93.41 Metabolic encephalopathy; E43 Unspecified severe protein-calorie malnutrition; E87.0 Hyperosmolality and hypernatremia; N39.0 Urinary tract infection, site not specified; R64 Cachexia; Z68.1 Body mass index [BMI] 19.9 or less, adult; N17.9 Acute kidney failure, unspecified; F02.80 Dementia in other diseases classified elsewhere, unspecified severity, without behavioral disturbance, psychotic disturbance, mood disturbance, and anxiety; R41.82 Altered mental status, unspecified; E86.0 Dehydration; R62.7 Adult failure to thrive; Z87.891 Personal history of nicotine dependence; E87.6 Hypokalemia; B96.20 Unspecified Escherichia coli [E. coli] as the cause of diseases classified elsewhere
CPT/HCPCS: 36415; 70450-TC; 80053; 81003; 81015; 85025; 85610; 87040; 87086; 87186; 93005; 93010; 99283-25; G0378